=== PATIENT | female | born 1955 | race Caucasian/White ===

== ENCOUNTER 2016-12-12 08:39 | Outpatient (CLI) | payer OTHER | END 2016-12-12 08:40 | disposition home or self-care (01) | DX: Z12.31 Encounter for screening mammogram for malignant neoplasm of breast (principal) ==

== ENCOUNTER 2017-04-27 11:59 | Outpatient (CLI) | payer OTHER ==
[2017-04-27 12:43] LABS: BASOPHILS % (AUTO) 0.7 %; EOSINOPHILS # (AUTO) 0.1 10^3/uL (0.0-0.7); EOSINOPHILS % (AUTO) 2.8 %; HCT - HEMATOCRIT 39.7 % (37.0-47.0); HGB - HEMOGLOBIN 13.2 g/dL (12.0-16.0); LYMPHOCYTES # (AUTO) 0.9 10^3/uL (1.5-3.5); LYMPHOCYTES % (AUTO) 21.5 %; MEAN CORPUSCULAR HEMOGLOBIN 29.6 pg (27.0-31.0); MEAN CORPUSCULAR HGB CONC 33.4 g/dL (32.0-36.0); MEAN CORPUSCULAR VOLUME 88.7 fL (81.0-99.0); MEAN PLATELET VOLUME 7.6 fL (7.9-10.8); MONOCYTES # (AUTO) 0.4 10^3/uL (0.0-1.0); MONOCYTES % (AUTO) 9.6 %; NEUTROPHILS # (AUTO) 2.8 10^3/uL (1.5-6.6); NEUTROPHILS % (AUTO) 65.4 %; RED BLOOD COUNT 4.47 10^6/uL (4.20-5.40); RED CELL DISTRIBUTION WIDTH 13.5 % (12.0-15.0); UNCORRECTED WHITE BLOOD COUNT 4.2 x10^3/uL; WHITE BLOOD COUNT 4.2 x10^3/uL (4.8-10.8)
[2017-04-27 12:50] LABS: ALBUMIN/GLOBULIN RATIO 1.7 (1.0-2.2); BILIRUBIN,TOTAL 0.5 mg/dL (0.2-1.0); CALCIUM 9.7 mg/dL (8.5-10.3); CREATININE 0.7 mg/dL (0.4-1.0); POTASSIUM 3.8 mmol/L (3.5-5.0); TOTAL PROTEIN 7.9 g/dL (6.7-8.2)
== END 2017-04-27 12:00 | disposition home or self-care (01) ==
LOC: LAB 11:59
PROVIDERS: ATTEND Family Medicine
DX: K27.9 Peptic ulcer, site unspecified, unspecified as acute or chronic, without hemorrhage or perforation (principal)
CPT/HCPCS: 36415; 80053; 83690; 85025

== ENCOUNTER 2017-06-06 10:16 | Outpatient (CLI) | payer OTHER ==
--- NOTE | 2017-06-07 09:09 | XRAY Report ---
LEFT TOES: 06/06/2017 No comparison. INDICATION: Nondisplaced fracture of proximal phalanx. TECHNIQUE: Three views of the left toes. FINDINGS: There is orthopedic hardware that appears to be about the 1st metatarsal seen on lateral view only. There is a subtle lucency of the 2nd proximal phalanx. This is favored to be artifactual or a vascular channel. No acute bone findings are seen in other regards. Fusion of the bones of the distal 4th ray is noted. Alignment appears anatomic. IMPRESSION: NO DEFINITE ACUTE FRACTURE. SUBTLE LUCENCY OF THE BASE OF THE 2ND PROXIMAL PHALANX IS FAVORED TO REPRESENT ARTIFACT OR A VASCULAR CHANNEL, BUT CORRELATE CLINICALLY FOR POSSIBLE TENDERNESS. JOB #: [id number] EXT JOB #: [id number] MTDD
== END 2017-06-06 10:17 | disposition home or self-care (01) ==
LOC: DI 10:16
PROVIDERS: ATTEND Family Medicine
DX: S92.415S Nondisplaced fracture of proximal phalanx of left great toe, sequela (principal); Z98.1 Arthrodesis status
CPT/HCPCS: 73660

== ENCOUNTER 2017-08-27 12:25 | Emergency (ER) | payer OTHER ==
[2017-08-27 12:51] VITALS: BP 141/83
--- NOTE | 2017-08-27 13:35 | XRAY Preliminary Report ---
Exam: XR TOE(S) LT IMPRESSION: Increasing displacement without bony fusion of the avulsion fracture base third proximal phalanx. [facility] SITE ID: [id number]
--- NOTE | 2017-08-27 13:43 | XRAY Report ---
EXAM: LEFT THIRD TOE RADIOGRAPHY EXAM DATE: 08/27/2017 01:03 PM. CLINICAL HISTORY: Continued pain after fracture many months ago. COMPARISON: 06/06/2017. 04/03/2011. TECHNIQUE: 3 views. FINDINGS: Bones: Increasing degree of displacement of the 3 x 5 mm avulsion fracture medial aspect base third p roximal phalanx, now almost 4 mm separation, previously 2 mm. No bony fusion at this time. Remote fusion fourth interphalangeal joints. Remote osteotomy with 2-screw fixation first metatarsal diaphysis. Joints: Normal. No subluxations. Soft Tissues: Edema adjacent to the base third toe. IMPRESSION: Increasing displacement without bony fusion of the avulsion fracture base third proximal phalanx. [facility] Referring Provider Line: [phone] SITE ID: [id number]
--- NOTE | 2017-08-27 13:56 | ED Physician Documentation ---
History of Present Illness - Stated complaint Stated Complaint: L TOE PX - Chief complaint Chief Complaint: Trauma Ext - Additonal information Additional information: hx from pt 62 f broke her 3rd R toe last fall seen by doc in [place] dx fx given walking boot and crutches seen by PMD a few months later and no change it was getting better and then after squatting down the toe hurt really bad again pain at base of toe and radiates into the toe Review of Systems Musculoskeletal: reports: Extremity pain PD PAST MEDICAL HISTORY - Past Medical History Psych: Anxiety Musculoskeletal: Chronic back pain, Other - Past Surgical History Past Surgical History: Yes Ortho: Spine surgery, 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, 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 - Present Medications Home Medications: Ambulatory Orders Medication Instructions Recorded Confirmed Estradiol [Vivelle-Dot] 0.75 mg PO 12/23/14 12/23/14 clonazePAM [Clonazepam] 2 mg PO QPM 12/23/14 12/23/14 traZODone [Desyrel] 100 mg PO DAILY 12/23/14 12/23/14 Duloxetine HCl [Cymbalta] 60 mg QPM 02/22/16 02/22/16 Ibuprofen [Motrin] 1 tab TID PRN 02/22/16 02/22/16 Mirabegron [Myrbetriq] 1 tab QPM 02/22/16 02/22/16 Ondansetron HCl [Zofran] 1 - 2 tab PRN 02/22/16 Polyethylene Glycol 3350 1 tab QID 02/22/16 02/22/16 Solifenacin Succinate [Vesicare] 1 tab QPM 02/22/16 02/22/16 Zolmitriptan [Zomig] 2 tab PRN 02/22/16 tiZANidine [Zanaflex] 1 tab PRN 02/22/16 Valacyclovir HCl [Valtrex] 1 tab PO PRN PRN 08/27/17 08/27/17 - Allergies Allergies/Adverse Reactions: Allergies Allergy/AdvReac Type Severity Reaction Status Date / Time adhesive tape Allergy Rash Verified 08/27/17 12:57 - Social History Does the pt smoke?: No Smoking Status: Never smoker Does the pt drink ETOH?: Yes Does the pt have substance abuse?: No - Immunizations Immunizations are current?: Yes - POLST Patient has POLST: Yes PD ED PE NORMAL - Vitals Vital signs reviewed: Yes - Extremities Extremities: Other (L foot - no deformity TTP base 3rd toe and distal 3rd MT, pain rad to toe with MT head compression, TTP to MT head fat pad, MSV intact) Results - Vitals Vitals: Vital Signs - 24 hr 08/27/17 12:47 Temperature 36.3 C L Heart Rate 91 Respiratory 16 Rate Blood Pressure 141/83 H O2 Saturation 100 Oxygen O2 Source Room air PD MEDICAL DECISION MAKING - ED course ED course: unhealed and now displaced fx also some dx of nerve impingement similar to mortons neuroma will make pt non wt bearing and follow up with ortho to see if pt might merit a pin Departure - Departure Disposition: Home, Self Care Clinical Impression: Toe fracture, left Condition: Good Instructions: ED Fx Toe Closed Follow-Up: [facility] [Provider Group] Comments: The toe has not healed - there is still a fracture and now the piece is displaced. That might be irritating the nerve and causing the pains down into your toe I recommend you use your crutches and do not bear any weight at all. Call the orthopedic office for follow up - you may need to have a wire placed to hold the bone pieces together so they can heal
== END 2017-08-27 14:11 | disposition home or self-care (01) ==
LOC: ED 12:25
DX: S92.512G Displaced fracture of proximal phalanx of left lesser toe(s), subsequent encounter for fracture with delayed healing (principal); X58.XXXD Exposure to other specified factors, subsequent encounter
CPT/HCPCS: 73660; 99283

== ENCOUNTER 2018-01-01 07:50 | Outpatient (CLI) | payer OTHER ==
--- NOTE | 2018-01-02 14:07 | Mammography Report ---
DIGITAL SCREENING MAMMOGRAM: 01/01/2018 CLINICAL INDICATION: A 62-year-old for screening. COMPARISON: 12/2016, 12/2015, 11/2014, 05/2013, 05/2012, 05/2011, 12/2009. TECHNIQUE: Routine CC and MLO projections as well as bilateral laterally exaggerated craniocaudal views were obtained of the breasts. FINDINGS: Parenchymal tissue within both breasts is heterogeneously dense, which may lower the sensitivity of mammography; however, there are no dominant masses, suspicious microcalcifications, or secondary signs of malignancy. In comparison to the previous studies, there are no significant changes. IMPRESSION: NO MAMMOGRAPHIC EVIDENCE OF MALIGNANCY. NO SIGNIFICANT INTERVAL CHANGES. RECOMMENDATION: Screening mammography is recommended annually. BIRADS CATEGORY 1 - NEGATIVE. STANDARD QUALIFYING STATEMENTS: 1. This examination was reviewed with the aid of Computed-Aided Detection (CAD). 2. A negative or benign imaging report should not delay biopsy if clinically suspicious findings are present. Consider surgical consultation if warranted. More than 5% of cancers are not identified by imaging. 3. Dense breasts may obscure an underlying neoplasm. TD: 01/02/2018 14:00
== END 2018-01-01 07:51 | disposition home or self-care (01) ==
LOC: DI 07:50
PROVIDERS: ATTEND Family Medicine
DX: Z12.31 Encounter for screening mammogram for malignant neoplasm of breast (principal)
CPT/HCPCS: 77067

== ENCOUNTER 2018-05-19 08:04 | Outpatient (CLI) | payer OTHER ==
--- NOTE | 2018-05-20 09:37 | DEXA Report ---
Reason: POSTMENOPAUSAL STATUS Procedure Date: 05/19/2018 Accession Number: [id number] / [id number] Procedure: DEX - Dexa Spine and/or Hip CPT Code: FULL RESULT: EXAM: Dexa Spine and/or Hip DATE: 05/19/2018 8:49 AM CLINICAL HISTORY: POSTMENOPAUSAL STATUS TECHNIQUE: Dual energy x-ray absorptiometry (DXA) was performed on a [employer] System. Regions measured are the AP Spine, femoral neck, and if needed forearm. COMPARISON: None. In accordance with the International Society for Clinical Densitometry (ISCD) guidelines, data from previous exams may be reanalyzed using current recommendations and techniques. This is done to allow a more accurate basis for comparison with the current study. FINDINGS: The data for the lumbar spine is as follows: BMD (g/cm/cm) T-SCORE Z-SCORE REGION L1 0.789 -2.8 -1.0 L2 0.952 -2.1 -0.2 L3 1.231 0.3 2.1 L4 TOTAL 0.995 -1.5 0.4 NOTE: All evaluable vertebrae are used for classification The data for the hip is as follows: BMD (g/cm/cm) T-SCORE Z-SCORE REGION Neck 0.686 -2.5 -0.9 TOTAL 0.676 -2.6 -1.2 NOTE: The femoral neck or total proximal femur, whichever is lowest, is used for classification. IMPRESSION: THE WHO CLASSIFICATION BASED ON THE INTERNATIONAL REFERENCE STANDARD IS OSTEOPOROSIS. THE FRACTURE RISK IS HIGH. RECOMMENDATION: Patients with diagnosis of osteoporosis or osteopenia should have regular bone mineral density assessment. For those eligible for Medicare, routine testing is allowed once every 2 years. Testing frequency can be increased for patients who have rapidly progressing disease or for those who are receiving medical therapy to restore bone mass. COMMENT: World Health Organization (WHO) definitions for osteoporosis and osteopenia: NORMAL BMD: T-score at -1.0 or higher, fracture risk is low OSTEOPENIA BMD: T-score between -1.0 and -2.5, fracture risk is increased. OSTEOPOROSIS BMD: T-score at -2.5 or lower, fracture risk is high. National Osteoporosis Foundation recommends: 1. Obtain adequate dietary calcium (at least 1200 mg per day) and vitamin D (400-800 international units per day). 2. Participate, as appropriate, in regular weightbearing and muscle-strengthening exercise. 3. Avoid tobacco use and reduce alcohol and caffeine intake. 4. For more detailed information see the website at www.NOF.org.
== END 2018-05-19 08:05 | disposition home or self-care (01) ==
LOC: DI 08:04
PROVIDERS: ATTEND Family Medicine
DX: M81.0 Age-related osteoporosis without current pathological fracture (principal)
CPT/HCPCS: 77080

== ENCOUNTER 2018-06-13 10:59 | Emergency (ER) | payer OTHER ==
--- NOTE | 2018-06-13 12:44 | ED Physician Documentation ---
PD HPI ABD PAIN - Stated complaint Stated Complaint: CP/HIGH BP/N/V - Chief complaint Chief Complaint: Abd Pain - History obtained from History obtained from: Patient - History of Present Illness Timing - onset: How many weeks ago (1-2 weeks of epigastric pains, worse with eating, with poor appetite and intake/nausea. Has had headache for the past 6 days. No focal weakness.) Timing - details: Gradual onset, Waxing and waning Quality: Aching, Pain Location: Epigastric Radiation: Chest Associated symptoms: Nausea. No: Fever, Vomiting, Diarrhea, Melena Similar symptoms before: No diagnosis (presume gastritis/ulcer and being treated for that with Carafate. Referred to surgery for EGD. Appt this coming week.) Recently seen: Not recently seen Review of Systems Constitutional: denies: Fever, Chills Nose: denies: Rhinorrhea / runny nose, Congestion Throat: denies: Sore throat Cardiac: reports: Chest pain / pressure. denies: Palpitations, Pedal edema, Calf pain Respiratory: denies: Cough GI: reports: Abdominal Pain, Nausea. denies: Vomiting, Diarrhea Skin: denies: Rash, Lesions Neurologic: reports: Headache. 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 - Present Medications Home Medications: Ambulatory Orders Medication Instructions Recorded Confirmed Estradiol [Vivelle-Dot] 0.75 mg PO 12/23/14 12/23/14 clonazePAM [Clonazepam] 2 mg PO QPM 12/23/14 12/23/14 traZODone [Desyrel] 100 mg PO DAILY 12/23/14 12/23/14 Duloxetine HCl [Cymbalta] 60 mg QPM 02/22/16 02/22/16 Ibuprofen [Motrin] 1 tab TID PRN 02/22/16 02/22/16 Mirabegron [Myrbetriq] 1 tab QPM 02/22/16 02/22/16 Ondansetron HCl [Zofran] 1 - 2 tab PRN 02/22/16 Polyethylene Glycol 3350 1 tab QID 02/22/16 02/22/16 Solifenacin Succinate [Vesicare] 1 tab QPM 02/22/16 02/22/16 Zolmitriptan [Zomig] 2 tab PRN 02/22/16 tiZANidine [Zanaflex] 1 tab PRN 02/22/16 Valacyclovir HCl [Valtrex] 1 tab PO PRN PRN 08/27/17 08/27/17 Famotidine [Pepcid] 20 mg PO BID #30 tablet 06/13/18 HYDROcod/ACETAM 5/325 [[place] 5/325] 1 tab PO Q6H PRN #15 tablet 06/13/18 Lidocaine Viscous 2% [Xylocaine 5 ml PO Q4H PRN #1 bottle 06/13/18 Viscous 2%] Lisinopril 06/13/18 06/13/18 Metoprolol Succinate 25 mg PO 06/13/18 Ondansetron HCl [Zofran] 4 mg PO Q6H PRN #20 tablet 06/13/18 - Allergies Allergies/Adverse Reactions: Allergies Allergy/AdvReac Type Severity Reaction Status Date / Time adhesive tape Allergy Rash Verified 06/13/18 11:14 - Social History Does the pt smoke?: No Smoking Status: Never smoker Does the pt drink ETOH?: Yes Does the pt have substance abuse?: No - Immunizations Immunizations are current?: Yes - POLST Patient has POLST: Yes PD ED PE NORMAL - Vitals Vital signs reviewed: Yes - General General: Alert and oriented X 3, Well developed/nourished, Other (appears in pain, mainly due to stomach.) - HEENT HEENT: Pharynx benign - Neck Neck: Supple, no meningeal sign, No adenopathy - Cardiac Cardiac: RRR, No murmur - Respiratory Respiratory: No respiratory distress, Clear bilaterally - Abdomen Abdomen: Normal bowel sounds, Soft, Non distended, No organomegaly, Other - Female Female : Deferred - Rectal Rectal: Deferred - Back Back: No CVA TTP - Derm Derm: Normal color, Warm and dry - Extremities Extremities: No tenderness to palpate, Normal ROM s pain, No edema, No calf tenderness / cord - Neuro Neuro: Alert and oriented 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 No: ST elevation c/w ischemia, ST depression - Labs Labs: Laboratory Tests 06/13/18 06/13/18 06/13/18 13:25 13:25 13:25 WBC 2.8 L RBC 4.37 Hgb 13.0 Hct 38.0 MCV 87.0 MCH 29.8 MCHC 34.3 RDW 13.3 Plt Count 155 MPV 8.6 Neut # (Auto) 2.2 Lymph # (Auto) 0.2 L King # (Auto) 0.3 Eos # (Auto) 0.0 Baso # (Auto) 0.0 Absolute Nucleated RBC 0.00 Nucleated RBC % 0.1 Manual Slide Review Indicated RBC Morph Micro Appear 2+ ANISOCYTOSIS ESR Sodium 135 Potassium 3.0 L Chloride 96 L Carbon Dioxide 30 Anion Gap 9.0 BUN 20 Creatinine 0.3 L Estimated GFR (MDRD) 226 Glucose 111 H Calcium 8.9 Magnesium 2.1 Total Bilirubin 0.6 AST 30 ALT 34 Alkaline Phosphatase 73 Troponin I < 0.04 Total Protein 6.3 L Albumin 3.5 Globulin 2.8 Albumin/Globulin Ratio 1.3 Lipase 23 06/13/18 13:25 WBC RBC Hgb Hct MCV MCH MCHC RDW Plt Count MPV Neut # (Auto) Lymph # (Auto) King # (Auto) Eos # (Auto) Baso # (Auto) Absolute Nucleated RBC Nucleated RBC % Manual Slide Review RBC Morph Micro Appear ESR 15 Sodium Potassium Chloride Carbon Dioxide Anion Gap BUN Creatinine Estimated GFR (MDRD) Glucose Calcium Magnesium Total Bilirubin AST ALT Alkaline Phosphatase Troponin I Total Protein Albumin Globulin Albumin/Globulin Ratio Lipase PD MEDICAL DECISION MAKING - ED course Complexity details: reviewed results (head CT is normal (low prob test but patient/ concerned about the degree of headache). Headache seems likely migrainous. Stomach seems ulcerative. Given Rx for stool test for H.pylori. ), considered differential, d/w patient Departure - Departure Disposition: 01 Home, Self Care Clinical Impression: Generalized headache, Upper abdominal pain Condition: Stable Record reviewed to determine appropriate education?: Yes Instructions: ED Cephalgia Unspecified, ED PUD Vs Gastritis Follow-Up: Nedra Almeida DO [Primary Care Provider] - Prescriptions: Famotidine [Pepcid] 20 mg PO BID #30 tablet HYDROcod/ACETAM 5/325 [[place] 5/325] 1 tab PO Q6H PRN #15 tablet PRN Reason: Pain Lidocaine Viscous 2% [Xylocaine Viscous 2%] 5 ml PO Q4H PRN #1 bottle PRN Reason: Pain Ondansetron HCl [Zofran] 4 mg PO Q6H PRN #20 tablet PRN Reason: Nausea / Vomiting Comments: Drink lots of fluids. Continue the Carafate as previously prescribed. Add famotidine twice daily for the next couple of weeks. Lidocaine with antacid if needed for stomach pain. Ondansetron if needed for nausea. Add Tylenol or hydrocodone if needed for pain. No NSAID use. Use a mild stool softener daily. Bring a stool sample in for testing for H. pylori bacteria. This can just be brought to the lab or the your doctor's office. Follow-up with your primary care next week, call for an appointment. Discharge Date/Time: 06/13/18 16:20
[2018-06-13] MEDS ORDERED: SODIUM CHLORIDE 0.9% 1,000 ML IV ONE ×2 (13:08→13:11)
[2018-06-13] MEDS ORDERED: KETOROLAC 15 MG/ML VIAL IVP STA (13:09)
[2018-06-13] MEDS ORDERED: FAMOTIDINE 20 MG/2 ML VIAL IVP STA (13:09)
[2018-06-13] MEDS ORDERED: ONDANSETRON 4 MG/2 ML VIAL IVP STA (13:09)
[2018-06-13] MEDS ORDERED: LIDOCAINE VISCOUS 2% 15 ML UDC MM STA (13:10)
[2018-06-13] MEDS ORDERED: MAG HYDROX/AL HYDROX/SIMETH 30 ML UDC PO STA (13:10)
[2018-06-13 13:48] LABS: ALBUMIN 3.5 g/dL (3.2-5.5); ALBUMIN/GLOBULIN RATIO 1.3 (1.0-2.2); BILIRUBIN,TOTAL 0.6 mg/dL (0.2-1.0); CALCIUM 8.9 mg/dL (8.5-10.3); CREATININE 0.3 mg/dL (0.4-1.0); MAGNESIUM 2.1 mg/dL (1.7-2.8); TOTAL PROTEIN 6.3 g/dL (6.7-8.2)
[2018-06-13] MEDS ORDERED: POTASSIUM CHLOR 10 MEQ/100 ML 10 MEQ/100 ML BAG IV ONE (13:56)
[2018-06-13] MEDS ORDERED: POTASSIUM BICARB 25 MEQ TABLET PO STA (13:56)
[2018-06-13 14:07] LABS: BASOPHILS % (AUTO) 0.4 %; EOSINOPHILS % (AUTO) 0.7 %; LYMPHOCYTES # (AUTO) 0.2 10^3/uL (1.5-3.5); LYMPHOCYTES % (AUTO) 8.5 %; MEAN CORPUSCULAR HEMOGLOBIN 29.8 pg (27.0-31.0); MEAN CORPUSCULAR HGB CONC 34.3 g/dL (32.0-36.0); MEAN PLATELET VOLUME 8.6 fL (7.9-10.8); MONOCYTES # (AUTO) 0.3 10^3/uL (0.0-1.0); MONOCYTES % (AUTO) 11.3 %; NEUTROPHILS # (AUTO) 2.2 10^3/uL (1.5-6.6); NEUTROPHILS % (AUTO) 79.1 %; PLT - PLATELET COUNT 155 10^3/uL (130-450); RED BLOOD COUNT 4.37 10^6/uL (4.20-5.40); RED CELL DISTRIBUTION WIDTH 13.3 % (12.0-15.0); WHITE BLOOD COUNT 2.8 x10^3/uL (4.8-10.8)
[2018-06-13] MEDS ORDERED: MORPHINE 2 MG/ML CARPUJECT IVP STA (14:15)
[2018-06-13 14:21] LABS: RBC MORPHOLOGY (MULTIPLE) 2+ ANISOCYTOSIS (NORMAL)
--- NOTE | 2018-06-13 15:28 | CT Report ---
Reason: headache for over a week Procedure Date: 06/13/2018 Accession Number: [id number] / [id number] Procedure: CT - Head W/O CPT Code: FULL RESULT: EXAM: CT HEAD EXAM DATE: 06/13/2018 03:06 PM. CLINICAL HISTORY: Headache for over a week. COMPARISON: BRAIN W/O 09/23/2015 7:51 AM. TECHNIQUE: Multiaxial CT images were obtained from the foramen magnum to the vertex. Reformats: Sagittal and coronal. IV contrast: None. In accordance with CT protocol optimization, one or more of the following dose reduction techniques were utilized for this exam: automated exposure control, adjustment of mA and/or KV based on patient size, or use of iterative reconstructive technique. FINDINGS: Parenchyma: No intraparenchymal hemorrhage. No evidence of mass, midline shift, or CT findings of infarction. Bolton-white differentiation is distinct. Extraaxial Spaces: Normal for age. No subdural or epidural collections identified. Ventricles: Normal in size and position. Sinuses and Orbits: Imaged paranasal sinuses, orbits, and mastoids show no significant abnormality. Bones: No evidence of fracture or calvarial defect. Other: None. IMPRESSION: No acute intracranial CT abnormality. [facility]
[2018-06-13] MEDS ORDERED: MORPHINE 10 MG/ML VIAL IVP STA (15:51)
[2018-06-13 16:20] VITALS: BP 153/87
== END 2018-06-13 16:20 | disposition home or self-care (01) ==
LOC: ED 10:59
DX: R51 Headache (principal); R10.13 Epigastric pain
CPT/HCPCS: 36415; 70450; 80053; 83690; 83735; 84484; 85025; 85651; 93005; 96361; 96365; 96375; 96376; 99283; 99284; A9270

== ENCOUNTER → 2018-06-14 | Outpatient (CLI) | payer OTHER ==
[2018-06-14 13:43] LABS: H. PYLORIS ANTIGEN STL NEGATIVE (Negative)
== END ==
LOC: LAB.R 08:00
PROVIDERS: ATTEND Emergency Medicine
DX: R10.9 Unspecified abdominal pain (principal)
CPT/HCPCS: 87338

== ENCOUNTER 2018-07-02 06:15 | Day surgery (SDC) | payer OTHER ==
[2018-07-02] MEDS ORDERED: LACTATED RINGERS 1,000 ML IV ONE (06:31)
[2018-07-02] MEDS ORDERED: LIDO GARGLE 30 ML BOTTLE ONE (07:13)
[2018-07-02] MEDS ORDERED: LIDO GARGLE 30 ML BOTTLE TOP ONE (07:40)
[2018-07-02] MEDS ORDERED: fentaNYL 250 MCG/5 ML VIAL IVP ONE (08:00)
[2018-07-02] MEDS ORDERED: MIDAZOLAM 2 MG/2 ML VIAL IVP ONE (08:00)
[2018-07-02] MEDS ORDERED: KETAMINE 500 MG/10 ML VIAL IVP ONE (08:20)
[2018-07-02] MEDS ORDERED: PROPOFOL 200 MG/20 ML VIAL IVP ONE (08:20)
[2018-07-02] MEDS ORDERED: LIDOCAINE-MPF 2% 5 ML VIAL IM ONE (08:20)
[2018-07-02 10:07] VITALS: BP 124/74
== END 2018-07-02 06:16 | disposition home or self-care (01) ==
LOC: SDS 06:15
PROVIDERS: ATTEND Internal Medicine Gastroenterology
PROC: 0DB68ZX Excision of Stomach, Via Natural or Artificial Opening Endoscopic, Diagnostic (ICD-10-PCS; 2018-07-02)
PROC: 0DJD8ZZ Inspection of Lower Intestinal Tract, Via Natural or Artificial Opening Endoscopic (ICD-10-PCS; principal; 2018-07-02 07:30)
PROC: 0DB58ZX Excision of Esophagus, Via Natural or Artificial Opening Endoscopic, Diagnostic (ICD-10-PCS; 2018-07-02 07:30)
DX: R10.13 Epigastric pain (principal); R13.10 Dysphagia, unspecified; K21.9 Gastro-esophageal reflux disease without esophagitis; Z86.010 Personal history of colon polyps; K29.70 Gastritis, unspecified, without bleeding; K59.09 Other constipation; Q43.8 Other specified congenital malformations of intestine; I10 Essential (primary) hypertension
CPT/HCPCS: 43239; 45378; 74280; 87081; A9270; J3010; J7120

== ENCOUNTER 2018-07-02 11:21 | Outpatient (CLI) | payer OTHER ==
[2018-07-02] MEDS ORDERED: BARIUM SULFATE 397 GM ENEMA PR ONE (14:06)
--- NOTE | 2018-07-02 16:01 | XRAY Report ---
Reason: HX COLON POLPS Procedure Date: 07/02/2018 Accession Number: [id number] / [id number] Procedure: FL - Barium Enema w/Air CPT Code: FULL RESULT: EXAM: BARIUM ENEMA. EXAM DATE: 07/02/2018 11:46 AM. CLINICAL HISTORY: History of colon polyps. COMPARISONS: None. TECHNIQUE: Routine double contrast barium enema. Fluoroscopy Time: 5 minutes 11 seconds. Number of Images: 40. FINDINGS: Morphology: Normal distention and anatomy. Colon adequately visualized from the rectum to the cecum. Mucosa: Normal. No diverticula, masses, or strictures. No filling defects evident. Terminal Ileum: Mild ileocecal reflux present. No mucosal abnormalities evident. Other: None. IMPRESSION: Normal barium enema. [facility]
== END 2018-07-02 11:22 | disposition home or self-care (01) ==
LOC: DI 11:21
PROVIDERS: ATTEND Internal Medicine Gastroenterology
DX: Z86.010 Personal history of colon polyps (principal)
CPT/HCPCS: 74280

== ENCOUNTER 2018-08-20 10:27 | Outpatient (CLI) | payer OTHER ==
[2018-08-20] MEDS ORDERED: BARIUM SULFATE 148 GM POWDER PO ONE (10:58)
[2018-08-20] MEDS ORDERED: BARIUM SULFATE 454 GM TUBE PO ONE (10:58)
--- NOTE | 2018-08-22 12:05 | XRAY Report ---
Reason: DYSPHAGIA, UNSPECIFIED Procedure Date: 08/20/2018 Accession Number: [id number] / [id number] Procedure: FL - Modified Barium Swallow W/SP CPT Code: FULL RESULT: EXAM: MODIFIED BARIUM SWALLOW EXAM DATE: 08/20/2018 10:54 AM. CLINICAL HISTORY: Dysphagia, unspecified. COMPARISON: 07/02/2018 11:46 AM. TECHNIQUE: Under the direction of speech pathology, patient swallowed various consistencies of barium under lateral fluoroscopic observation of the neck. Fluoroscopy Time: 1 minute 20 seconds. Number of Images: 74. FINDINGS: Swallowing Mechanism: Significantly delayed initiation. Airway Protection: Normal epiglottic motion. No episodes of tracheal penetration or aspiration with all consistencies of barium. Pharynx: Normal. No significant vallecular or piriform sinus contrast pooling. Other: None. IMPRESSION: Delayed initiation. No aspiration. [facility]
== END 2018-08-20 10:28 | disposition home or self-care (01) ==
LOC: DI 10:27
PROVIDERS: ATTEND Internal Medicine Gastroenterology
DX: R13.10 Dysphagia, unspecified (principal)
CPT/HCPCS: 74230

== ENCOUNTER 2018-08-25 11:55 | Emergency (ER) | payer OTHER ==
[2018-08-25 12:20] LABS: BASOPHILS # (AUTO) 0.1 10^3/uL (0.0-0.1); BASOPHILS % (AUTO) 1.2 %; EOSINOPHILS # (AUTO) 0.1 10^3/uL (0.0-0.7); HGB - HEMOGLOBIN 12.9 g/dL (12.0-16.0); LYMPHOCYTES # (AUTO) 0.8 10^3/uL (1.5-3.5); LYMPHOCYTES % (AUTO) 17.2 %; MEAN CORPUSCULAR HEMOGLOBIN 29.6 pg (27.0-31.0); MEAN CORPUSCULAR HGB CONC 33.9 g/dL (32.0-36.0); MEAN CORPUSCULAR VOLUME 87.5 fL (81.0-99.0); MEAN PLATELET VOLUME 8.3 fL (7.9-10.8); MONOCYTES # (AUTO) 0.4 10^3/uL (0.0-1.0); MONOCYTES % (AUTO) 7.9 %; NEUTROPHILS # (AUTO) 3.4 10^3/uL (1.5-6.6); NEUTROPHILS % (AUTO) 71.7 %; PLT - PLATELET COUNT 217 10^3/uL (130-450); RED BLOOD COUNT 4.37 10^6/uL (4.20-5.40); RED CELL DISTRIBUTION WIDTH 14.5 % (12.0-15.0); WHITE BLOOD COUNT 4.7 x10^3/uL (4.8-10.8)
[2018-08-25 12:41] LABS: ALBUMIN/GLOBULIN RATIO 1.8 (1.0-2.2); BILIRUBIN,TOTAL 0.5 mg/dL (0.2-1.0); CALCIUM 9.7 mg/dL (8.5-10.3); CREATININE 0.8 mg/dL (0.4-1.0); TOTAL PROTEIN 7.8 g/dL (6.7-8.2)
[2018-08-25 14:25] LABS: BILIRUBIN,URINE NEGATIVE (NEGATIVE); GLUCOSE, URINE (UA) NEGATIVE (NEGATIVE); KETONES,URINE (UA) NEGATIVE (NEGATIVE); LEUKOCYTE ESTERASE, URINE NEGATIVE (NEGATIVE); NITRITE,URINE NEGATIVE (NEGATIVE); OCCULT BLOOD,URINE NEGATIVE (NEGATIVE); PH,URINE 7.5 PH (5.0-7.5); PROTEIN,URINE NEGATIVE (NEGATIVE); UROBILINOGEN,URINE 0.2 (NORMAL) E.U./dL (NORMAL)
[2018-08-25 14:26] LABS: CLARITY,URINE CLEAR (CLEAR)
[2018-08-25] MEDS ORDERED: cloNIDine 0.1 MG TABLET PO STA (14:34)
--- NOTE | 2018-08-25 14:42 | ED Physician Documentation ---
History of Present Illness - Stated complaint Stated Complaint: HIGH BP/VISION CHANGE - Chief complaint Chief Complaint: Neuro - History obtained from History obtained from: Patient - History of Present Illness Timing: How many weeks ago (4) Pain level max: 3 Pain level now: 2 Severity Comments: mild Quality: pressure Radiates to: non-radiating Improved by: nothing Worsened by: nothing Review of Systems Ten Systems: 10 systems reviewed and negative Constitutional: reports: Reviewed and negative Eyes: reports: Reviewed and negative Ears: reports: Reviewed and negative Nose: reports: Reviewed and negative Throat: reports: Reviewed and negative Cardiac: reports: Reviewed and negative Respiratory: reports: Reviewed and negative GI: reports: Reviewed and negative : reports: Reviewed and negative Skin: reports: Reviewed and negative Musculoskeletal: reports: Reviewed and negative Neurologic: reports: Reviewed and negative Psychiatric: reports: Reviewed and negative Endocrine: reports: Reviewed and negative Immunocompromised: reports: Reviewed and negative PD PAST MEDICAL HISTORY - Past Medical History Past Medical History: Yes Cardiovascular: Hypertension Respiratory: None Neuro: Headaches Endocrine/Autoimmune: None GI: GERD, Ulcers, Colon polyps : None HEENT: None Psych: Anxiety Musculoskeletal: Chronic back pain, Other Derm: None - Past Surgical History Past Surgical History: Yes Ortho: Spine surgery, 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, 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 - Present Medications Home Medications: Ambulatory Orders Medication Instructions Recorded Confirmed Estradiol [Vivelle-Dot] 0.75 mg PO DAILY 12/23/14 07/02/18 clonazePAM [Clonazepam] 2 mg PO QPM 12/23/14 07/02/18 traZODone [Desyrel] 100 mg PO DAILY 12/23/14 07/02/18 Duloxetine HCl [Cymbalta] 60 mg PO QPM 02/22/16 07/02/18 Mirabegron [Myrbetriq] 1 tab PO QPM 02/22/16 07/02/18 Polyethylene Glycol 3350 1 tab QID 02/22/16 07/02/18 Solifenacin Succinate [Vesicare] 1 tab QPM 02/22/16 07/02/18 Zolmitriptan [Zomig] 2 tab PO PRN PRN 02/22/16 07/02/18 tiZANidine [Zanaflex] 1 tab PO DAILY 02/22/16 07/02/18 Valacyclovir HCl [Valtrex] 1 tab PO PRN PRN 01/16/18 11/21/18 HYDROcod/ACETAM 5/325 [[place] 5/325] 1 tab PO Q6H PRN #15 tablet 06/13/18 07/02/18 Lidocaine Viscous 2% [Xylocaine 5 ml PO Q4H PRN #1 bottle 06/13/18 07/02/18 Viscous 2%] Lisinopril 20 mg PO DAILY 06/13/18 07/02/18 Metoprolol Succinate 25 mg PO DAILY 06/13/18 07/02/18 Ondansetron HCl [Zofran] 4 mg PO Q6H PRN #20 tablet 06/13/18 07/02/18 - Allergies Allergies/Adverse Reactions: Allergies Allergy/AdvReac Type Severity Reaction Status Date / Time adhesive tape Allergy Rash Verified 08/25/18 12:03 - Living Situation Living Situation: reports: With family Living Arrangement: reports: At home - Social History Does the pt smoke?: No Smoking Status: Never smoker Does the pt drink ETOH?: Yes Does the pt have substance abuse?: No - Family History Family history: reports: Other (REviewed and not pertinent) - Immunizations Immunizations are current?: Yes - POLST Patient has POLST: Yes PD ED PE NORMAL - Vitals Vital signs reviewed: Yes - General General: Alert and oriented X 3, No acute distress - HEENT HEENT: PERRL - Neck Neck: Supple, no meningeal sign - Cardiac Cardiac: RRR, No murmur - Respiratory Respiratory: Clear bilaterally - Abdomen Abdomen: Normal bowel sounds, Soft, Non tender, Non distended - Derm Derm: Warm and dry - Extremities Extremities: No deformity - Neuro Neuro: Alert and oriented X 3 - Psych Psych: Normal mood, Normal affect Results - Vitals Vitals: Vital Signs - 24 hr 08/25/18 08/25/18 08/25/18 11:57 14:16 15:21 Temperature 36.2 C L Heart Rate 71 65 61 Respiratory 18 16 16 Rate Blood Pressure 191/92 H 189/99 H 182/99 H O2 Saturation 100 100 100 08/25/18 15:57 Temperature Heart Rate Respiratory Rate Blood Pressure 186/96 H O2 Saturation Oxygen O2 Source Room air - Labs Labs: Laboratory Tests 08/25/18 08/25/18 08/25/18 12:10 12:10 14:11 WBC 4.7 L RBC 4.37 Hgb 12.9 Hct 38.2 MCV 87.5 MCH 29.6 MCHC 33.9 RDW 14.5 Plt Count 217 MPV 8.3 Neut # (Auto) 3.4 Lymph # (Auto) 0.8 L [place] # (Auto) 0.4 Eos # (Auto) 0.1 Baso # (Auto) 0.1 Absolute Nucleated RBC 0.00 Nucleated RBC % 0.0 Sodium 138 Potassium 3.6 Chloride 97 L Carbon Dioxide 32 Anion Gap 9.0 BUN 18 Creatinine 0.8 Estimated GFR (MDRD) 73 L Glucose 107 H Calcium 9.7 Total Bilirubin 0.5 AST 37 ALT 35 Alkaline Phosphatase 67 Troponin I Total Protein 7.8 Albumin 5.0 Globulin 2.8 Albumin/Globulin Ratio 1.8 Lipase 34 Urine Color YELLOW Urine Clarity CLEAR Urine pH 7.5 Ur Specific Springer 1.015 Urine Protein NEGATIVE Urine Glucose (UA) NEGATIVE Urine Ketones NEGATIVE Urine Occult Blood NEGATIVE Urine Nitrite NEGATIVE Urine Bilirubin NEGATIVE Urine Urobilinogen 0.2 (NORMAL) Ur Leukocyte Esterase NEGATIVE Ur Microscopic Review NOT INDICATED Urine Culture Comments NOT INDICATED 08/25/18 15:29 WBC RBC Hgb Hct MCV MCH MCHC RDW Plt Count MPV Neut # (Auto) Lymph # (Auto) Z[place]ata # (Auto) Eos # (Auto) Baso # (Auto) Absolute Nucleated RBC Nucleated RBC % Sodium Potassium Chloride Carbon Dioxide Anion Gap BUN Creatinine Estimated GFR (MDRD) Glucose Calcium Total Bilirubin AST ALT Alkaline Phosphatase Troponin I < 0.04 Total Protein Albumin Globulin Albumin/Globulin Ratio Lipase Urine Color Urine Clarity Urine pH Ur Specific Springer Urine Protein Urine Glucose (UA) Urine Ketones Urine Occult Blood Urine Nitrite Urine Bilirubin Urine Urobilinogen Ur Leukocyte Esterase Ur Microscopic Review Urine Culture Comments Departure - Departure Disposition: Home, Self Care Clinical Impression: Elevated blood pressure reading Condition: Stable Instructions: Hypertension Control, High Blood Pressure Follow-Up: Nedra Almeida MD [Primary Care Provider] - Comments: Follow up with PCP within 24 hours to adjust blood pressure medications. Return with worsening symptoms.
--- NOTE | 2018-08-25 15:28 | CT Report ---
Reason: HTN w headache Procedure Date: 08/25/2018 Accession Number: [id number] / [id number] Procedure: CT - Head W/O CPT Code: FULL RESULT: EXAM: CT HEAD EXAM DATE: 08/25/2018 02:46 PM. CLINICAL HISTORY: HTN w headache. COMPARISON: HEAD W/O 06/13/2018 3:08 PM. TECHNIQUE: Multiaxial CT images were obtained from the foramen magnum to the vertex. Reformats: Sagittal and coronal. IV contrast: None. In accordance with CT protocol optimization, one or more of the following dose reduction techniques were utilized for this exam: automated exposure control, adjustment of mA and/or KV based on patient size, or use of iterative reconstructive technique. FINDINGS: Parenchyma: No intraparenchymal hemorrhage. No evidence of mass, midline shift, or CT findings of infarction. Bolton-white differentiation is distinct. Mild patchy white matter hypodensity in the periventricular white matter and centrum semiovale suggesting chronic microvascular ischemic change. Extraaxial Spaces: Normal for age. No subdural or epidural collections identified. Ventricles: Normal in size and position. Sinuses and Orbits: Imaged paranasal sinuses, orbits, and mastoids show no significant abnormality. Bones: No evidence of fracture or calvarial defect. Other: None. IMPRESSION: 1. No definite acute intracranial abnormality. RADIA
[2018-08-25 15:58] VITALS: BP 186/96
== END 2018-08-25 16:15 | disposition home or self-care (01) ==
LOC: ED 11:55
DX: I10 Essential (primary) hypertension (principal)
CPT/HCPCS: 36415; 70450; 80053; 81003; 83690; 84484; 85025; 93005; 99283; 99284; A9270; 81001; 87086

== ENCOUNTER 2018-09-02 11:36 | Emergency (ER) | payer OTHER ==
[2018-09-02 12:14] LABS: BASOPHILS % (AUTO) 0.3 %; EOSINOPHILS # (AUTO) 0.1 10^3/uL (0.0-0.7); EOSINOPHILS % (AUTO) 3.6 %; HGB - HEMOGLOBIN 12.6 g/dL (12.0-16.0); LYMPHOCYTES # (AUTO) 0.8 10^3/uL (1.5-3.5); LYMPHOCYTES % (AUTO) 21.3 %; MEAN CORPUSCULAR HEMOGLOBIN 29.7 pg (27.0-31.0); MEAN CORPUSCULAR HGB CONC 33.9 g/dL (32.0-36.0); MEAN CORPUSCULAR VOLUME 87.5 fL (81.0-99.0); MEAN PLATELET VOLUME 8.3 fL (7.9-10.8); MONOCYTES # (AUTO) 0.3 10^3/uL (0.0-1.0); MONOCYTES % (AUTO) 8.5 %; NEUTROPHILS # (AUTO) 2.7 10^3/uL (1.5-6.6); NEUTROPHILS % (AUTO) 66.3 %; PLT - PLATELET COUNT 206 10^3/uL (130-450); RED BLOOD COUNT 4.25 10^6/uL (4.20-5.40); RED CELL DISTRIBUTION WIDTH 14.6 % (12.0-15.0)
[2018-09-02 12:27] LABS: ALBUMIN 4.6 g/dL (3.2-5.5); ALBUMIN/GLOBULIN RATIO 1.4 (1.0-2.2); BILIRUBIN,TOTAL 0.7 mg/dL (0.2-1.0); CALCIUM 9.2 mg/dL (8.5-10.3); CREATININE 0.8 mg/dL (0.4-1.0); TOTAL PROTEIN 7.8 g/dL (6.7-8.2)
--- NOTE | 2018-09-02 13:55 | ED Physician Documentation ---
History of Present Illness - Stated complaint Stated Complaint: HPB/[place]/SOA - Chief complaint Chief Complaint: General - History obtained from History obtained from: Patient - History of Present Illness Timing: Today (Went to dentist's office today to have work done but BP was 191/106 and sent to ED. Had some SOA and jitteriness after being told that but self resolved. BP usually 180/100 at home, just had metoprolol doubled. 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 - Present Medications Home Medications: Ambulatory Orders Medication Instructions Recorded Confirmed Estradiol [Vivelle-Dot] 0.75 mg PO DAILY 12/23/14 07/02/18 RX: clonazePAM [Clonazepam] 2 mg PO QPM 12/23/14 07/02/18 traZODone [Desyrel] 100 mg PO DAILY 12/23/14 07/02/18 Duloxetine HCl [Cymbalta] 60 mg PO QPM 02/22/16 07/02/18 Mirabegron [Myrbetriq] 1 tab PO QPM 02/22/16 07/02/18 RX: Polyethylene Glycol 3350 1 tab QID 02/22/16 07/02/18 RX: tiZANidine [Zanaflex] 1 tab PO DAILY 02/22/16 07/02/18 Solifenacin Succinate [Vesicare] 1 tab QPM 02/22/16 07/02/18 Zolmitriptan [Zomig] 2 tab PO PRN PRN 02/22/16 07/02/18 Valacyclovir HCl [Valtrex] 1 tab PO PRN PRN 08/27/17 07/02/18 HYDROcod/ACETAM 5/325 [[place] 5/325] 1 tab PO Q6H PRN #15 tablet 06/13/18 07/02/18 Ondansetron HCl [Zofran] 4 mg PO Q6H PRN #20 tablet 06/13/18 07/02/18 RX: Lidocaine Viscous 2% 5 ml PO Q4H PRN #1 bottle 06/13/18 07/02/18 [Xylocaine Viscous 2%] RX: Lisinopril 20 mg PO DAILY 06/13/18 07/02/18 RX: Metoprolol Succinate 25 mg PO DAILY 06/13/18 07/02/18 RX: Lisinopril 20 mg PO BID #60 tablet 09/02/18 RX: Metoprolol Tartrate 50 mg PO BID #60 tablet 09/02/18 - Allergies Allergies/Adverse Reactions: Allergies Allergy/AdvReac Type Severity Reaction Status Date / Time adhesive tape Allergy Rash Verified 09/02/18 11:48 - Social History Does the pt smoke?: No Smoking Status: Never smoker Does the pt drink ETOH?: Yes Does the pt have substance abuse?: No - Immunizations Immunizations are current?: Yes - POLST Patient has POLST: Yes PD ED PE NORMAL - Vitals Vital signs reviewed: Yes - General General: Alert and oriented X 3, No acute distress - HEENT HEENT: PERRL, EOMI - Cardiac Cardiac: RRR, No murmur - Respiratory Respiratory: No respiratory distress, Clear bilaterally - Abdomen Abdomen: Non tender - Extremities Extremities: No edema, No calf tenderness / cord - Neuro Neuro: Alert and oriented X 3, Normal speech Results - Vitals Vitals: Vital Signs - 24 hr 09/02/18 09/02/18 09/02/18 11:39 12:20 12:33 Temperature 36 C L Heart Rate 65 60 Respiratory 16 15 Rate Blood Pressure 198/96 H 202/103 H 196/94 H O2 Saturation 96 100 09/02/18 09/02/18 13:00 14:06 Temperature 36.5 C Heart Rate 56 L 58 L Respiratory 20 Rate Blood Pressure 186/97 H 199/104 H O2 Saturation 100 100 Oxygen O2 Source Room air - EKG (time done) 1145 Rate: Rate (enter#) (58) Rhythm: NSR Parsons: Normal Intervals: Normal AR QRS: Normal Ischemia: Normal ST segments Computer interpretation: Agree with computer - Labs Labs: Laboratory Tests 09/02/18 09/02/18 09/02/18 12:07 12:07 12:07 WBC 4.0 L RBC 4.25 Hgb 12.6 Hct 37.2 MCV 87.5 MCH 29.7 MCHC 33.9 RDW 14.6 Plt Count 206 MPV 8.3 Neut # (Auto) 2.7 Lymph # (Auto) 0.8 L [place] # (Auto) 0.3 Eos # (Auto) 0.1 Baso # (Auto) 0.0 Absolute Nucleated RBC 0.00 Nucleated RBC % 0.0 Sodium 138 Potassium 3.4 L Chloride 96 L Carbon Dioxide 33 H Anion Gap 9.0 BUN 17 Creatinine 0.8 Estimated GFR (MDRD) 73 L Glucose 110 H Calcium 9.2 Total Bilirubin 0.7 AST 37 ALT 38 Alkaline Phosphatase 65 Troponin I < 0.04 Total Protein 7.8 Albumin 4.6 Globulin 3.2 Albumin/Globulin Ratio 1.4 Lipase 32 PD MEDICAL DECISION MAKING - ED course ED course: This is a 63-year-old woman with asymptomatic hypertension. She recently had her metoprolol increased without much change in her blood pressure. We will double her lisinopril pending primary care follow-up. Departure - Departure Disposition: 01 Home, Self Care Clinical Impression: Hypertension Condition: Good Record reviewed to determine appropriate education?: Yes Instructions: ED HTN Established Prescriptions: RX: Lisinopril 20 mg PO BID #60 tablet RX: Metoprolol Tartrate 50 mg PO BID #60 tablet Comments: Followup with your primary care doctor for blood pressure recheck and continued medication adjustments. Discharge Date/Time: 09/02/18 14:11
[2018-09-02 14:07] VITALS: BP 199/104
== END 2018-09-02 14:11 | disposition home or self-care (01) ==
LOC: ED 11:36
DX: I10 Essential (primary) hypertension (principal)
CPT/HCPCS: 36415; 71045; 80053; 83690; 84484; 85025; 93005; 99283

== ENCOUNTER 2018-10-03 07:41 | Outpatient (CLI) | payer OTHER ==
--- NOTE | 2018-10-03 12:47 | Ultrasound Report ---
Reason: HYPERTENSION,BENIGN ESSENTIAL Procedure Date: 10/03/2018 Accession Number: [id number] / [id number] Procedure: US - Arterial Visceral Complete CPT Code: FULL RESULT: EXAM: RENAL ARTERY DOPPLER ULTRASOUND EXAM DATE: 10/03/2018 09:02 AM. CLINICAL HISTORY: HYPERTENSION, BENIGN ESSENTIAL. COMPARISON: None. TECHNIQUE: Real-time sonographic vascular imaging was performed by the cleaner and trimmer through the renal arterial system with a linear transducer utilizing color-flow, Doppler flow, and spectral analysis. Multiple inside outside sales representative static images were saved for review. FINDINGS: Peak systolic velocities as well as resistive indices and spectral waveforms are within normal limits. Please note that the recorded peak systolic velocity in the mid right renal artery of 201 cm/sec is likely due to artifact with the true velocity closer to 175 cm/sec, aliasing artifact. This is consistent with known pathophysiology; atherosclerotic renal artery stenosis occurs at the aortic ostium. Fibromuscular dysplasia which can occur in the mid renal artery typically affects a younger age group. The right renal vein is patent. Right Kidney: 9.4 x 4.9 x 5.2 cm. Echotexture: Within normal limits. Right Segmental Artery: Upper pole: PSV 98 cm/sec, RI 0.71. Mid pole: PSV 84 cm/sec, RI 0.78. Lower pole: PSV 54 cm/sec, RI 0.69. Right Renal Artery: Origin: PSV 139 cm/sec, RA/AO 1.9. Proximal: PSV 113 cm/sec, RA/AO 1.5. Mid: PSV 201 cm/sec, RA/AO 2.8. Distal: PSV 113 cm/sec, RA/AO 1.5. Aorta PSV: 72 cm/sec. RRV Patent: Yes. Left Kidney: 9.2 x 5.0 x 5.1 cm. Echotexture: Within normal limits. Left Segmental Artery: Upper pole: PSV 54 cm/sec, RI 0.69. Mid pole: PSV 65 cm/sec, RI 0.66. Lower pole: PSV 47 cm/sec, RI 0.64. Left Renal Artery: Origin: PSV 105 cm/sec, RA/AO 1.4. Proximal: PSV 112 cm/sec, RA/AO 1.5. Mid: PSV 174 cm/sec, RA/AO 2.4. Distal: PSV 47 cm/sec, RA/AO 0.65. LRV Patent: Yes. IMPRESSION: The study is negative for atherosclerotic renal artery stenosis. If there is concern for neuromuscular dysplasia, which is felt to be less likely in this patient, CTA could be considered. CRITERIA FOR CLASSIFICATION OF RENAL ARTERY (RA) DISEASE BY DUPLEX SCANNING: RA Diameter Reduction/ RA PSV/ RAR: Normal, < 180 cm/sec, < 3.5 < 60%, >= 180 cm/sec, < 3.5 >= 60%, >= 180 cm/sec, >= 3.5 Total Occlusion: Undetectable; Not applicable RADIA
== END 2018-10-03 07:42 | disposition home or self-care (01) ==
LOC: DI 07:41
PROVIDERS: ATTEND Family Medicine
DX: I10 Essential (primary) hypertension (principal)
CPT/HCPCS: 93975

== ENCOUNTER 2018-10-15 11:12 | Outpatient (CLI) | payer OTHER ==
--- NOTE | 2018-10-15 12:57 | Ultrasound Report ---
Reason: FINGER PAIN,LEFT Procedure Date: 10/15/2018 Accession Number: [id number] / [id number] Procedure: US - Ext Limited Non Vascular CPT Code: FULL RESULT: EXAM: LEFT UPPER EXTREMITY ULTRASOUND - LIMITED EXAM DATE: 10/15/2018 11:49 AM. CLINICAL HISTORY: Finger pain, left. COMPARISON: None. TECHNIQUE: Real-time scanning was performed with static images obtained. FINDINGS: Focused ultrasound of the left index finger along the volar side at the level of the distal interphalangeal joint is performed, as this is the area indicated by the patient as painful. At the tendinous insertion of the flexor tendon of the distal phalanx is a focal calcification, 3 mm in length, which corresponds to the focus of the patient's pain. The adjacent tendon is intact and there is no abnormal collection or abnormal mass. 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 Recommend radiographs of the left finger to exclude joint space etiology of the calcifications such as crystalline arthropathy with or without erosions. RADIA
== END 2018-10-15 11:13 | disposition home or self-care (01) ==
LOC: DI 11:12
PROVIDERS: ATTEND Orthopaedic Surgery
DX: M25.842 Other specified joint disorders, left hand (principal)
CPT/HCPCS: 76882

== ENCOUNTER 2018-12-31 08:38 | Outpatient (CLI) | payer OTHER ==
--- NOTE | 2018-12-31 12:29 | XRAY Report ---
Reason: TOE PAIN,LEFT Procedure Date: 12/31/2018 Accession Number: [id number] / [id number] Procedure: WCP - Toe(s) LT CPT Code: FULL RESULT: EXAM: LEFT TOE RADIOGRAPHY EXAM DATE: 12/31/2018 08:48 AM. CLINICAL HISTORY: TOE PAIN, LEFT. COMPARISON: TOE(S) LT 08/27/2017 1:03 PM TOE(S) LT 06/06/2017 10:19 AM. TECHNIQUE: 3 views. FINDINGS: Bones: Compared to August 2017 there has been placement of an operative fixation screw at the site of previous fracture at the medial base of the third proximal phalanx with interval osteonecrosis/resorption of the fracture fragment and additional erosion of the proximal phalanx and distal third metatarsal. The bones are qualitatively osteopenic; this limits evaluation for underlying fractures or masses. No new fracture is seen. Arthrodesis screws are seen in the first metatarsal. Joints: Complete fusion of the distal fourth ray is again seen. Soft Tissues: Normal. No soft tissue swelling. IMPRESSION: Interval surgical fixation of the third proximal phalanx fracture with development of erosive changes in the area. RADIA
== END 2018-12-31 08:39 | disposition home or self-care (01) ==
LOC: DI.WCP 08:38
PROVIDERS: ATTEND Family Medicine
DX: M79.675 Pain in left toe(s) (principal)
CPT/HCPCS: 73660

== ENCOUNTER 2019-01-28 09:19 | Outpatient (CLI) | payer OTHER ==
--- NOTE | 2019-01-29 09:10 | Mammography Report ---
Reason: SCREENING MAMMO Procedure Date: 01/28/2019 Accession Number: [id number] / [id number] Procedure: MAGALI - Screening Mammo w/Simone CPT Code: FULL RESULT: EXAM: Screening Mammo w/Simone DATE: 01/28/2019 10:05 AM CLINICAL HISTORY: Screening encounter. History of ovarian cancer. TECHNIQUE: (B) - Bilateral CC, laterally exaggerated CC, MLO views were obtained. COMPARISON: 01/01/2018 through 05/15/2013. PARENCHYMAL PATTERN: (D) - The breast(s) demonstrate(s) heterogeneously dense fibroglandular parenchyma. FINDINGS: Note is made of coarse typically benign and typically benign vascular calcifications. Bilateral pattern of nodular breast parenchyma demonstrates long-term stability, typically benign appearance. There are no suspicious masses, calcifications, or areas of distortion. IMPRESSION: Benign findings. BI-RADS category 2. RECOMMENDATION: (ANNUAL) - Recommend routine annual screening mammography. BI-RADS CATEGORY: (2) - Benign Findings. STANDARD QUALIFYING STATEMENTS: 1. This examination was not reviewed with the aid of Computer-Aided Detection (CAD). 2. A negative or benign imaging report should not preclude biopsy if clinically suspicious findings are present. 3. Dense breasts may obscure an underlying neoplasm. 4. This examination was reviewed with the aid of 3D breast imaging (tomosynthesis).
== END 2019-01-28 09:20 | disposition home or self-care (01) ==
LOC: DI 09:19
DX: Z12.31 Encounter for screening mammogram for malignant neoplasm of breast (principal); Z85.43 Personal history of malignant neoplasm of ovary
CPT/HCPCS: 77063; 77067

== ENCOUNTER 2019-01-31 11:13 | Outpatient (CLI) | payer OTHER ==
[2019-01-31 12:03] LABS: HGB - HEMOGLOBIN 12.9 g/dL (12.0-16.0); MEAN CORPUSCULAR HGB CONC 30.7 g/dL (32.0-36.0); MEAN CORPUSCULAR VOLUME 91.3 fL (81.0-99.0); MEAN PLATELET VOLUME 9.7 fL (7.9-10.8); RED BLOOD COUNT 4.6 10^6/uL (4.20-5.40); RED CELL DISTRIBUTION WIDTH 13.2 % (12.0-15.0); WHITE BLOOD COUNT 3.6 x10^3/uL (4.8-10.8)
[2019-01-31 12:24] LABS: CRP - C-REACTIVE PROTEIN < 1.0 mg/dL (0-1.0)
[2019-01-31 12:31] LABS: URIC ACID 3.3 mg/dL (2.6-7.2)
[2019-01-31 13:24] LABS: RHEUMATOID FACTOR NEGATIVE (Negative)
--- NOTE | 2019-01-31 15:39 | XRAY Report ---
Reason: ANKLE JOINT PAIN,RIGHT Procedure Date: 01/31/2019 Accession Number: [id number] / [id number] Procedure: XR - Ankle 2 View RT CPT Code: FULL RESULT: EXAM: RIGHT ANKLE RADIOGRAPHY EXAM DATE: 01/31/2019 11:22 AM. CLINICAL HISTORY: Right sided ankle pain. COMPARISON: FOOT 2 VIEW BILAT 03/06/2017 2:41 PM. TECHNIQUE: 2 views. FINDINGS: Bones: Normal. No fractures or bone lesions. Metallic screws are noted on lateral view at the level of the metatarsals. Joints: Normal. No effusion. No subluxations. The ankle mortise is normally aligned. Soft Tissues: Normal. No soft tissue swelling. IMPRESSION: Grossly unremarkable exam, with metallic screws noted on lateral view at the level of metatarsals. RADIA
[2019-02-03 20:06] LABS: ANA SCREEN POSITIVE (NEGATIVE)
== END 2019-01-31 11:14 | disposition home or self-care (01) ==
LOC: DI 11:13
PROVIDERS: ATTEND Family Medicine
DX: M25.571 Pain in right ankle and joints of right foot (principal)
CPT/HCPCS: 36415; 84550; 85027; 85651; 86038; 86140; 86200; 86430

== ENCOUNTER 2019-02-06 10:21 | Outpatient (CLI) | payer OTHER ==
[2019-02-10 19:16] LABS: ANA SCREEN POSITIVE (NEGATIVE)
== END 2019-02-06 10:22 | disposition home or self-care (01) ==
LOC: LAB.WCP 10:21
PROVIDERS: ATTEND Family Medicine
DX: M25.571 Pain in right ankle and joints of right foot (principal)
CPT/HCPCS: 36415; 86038

== ENCOUNTER 2019-03-18 08:00 | Outpatient (CLI) | payer OTHER ==
[2019-03-18 18:43] LABS: EOSINOPHILS # (AUTO) 0.3 10^3/uL (0.0-0.7); EOSINOPHILS % (AUTO) 6.4 %; HGB - HEMOGLOBIN 12.4 g/dL (12.0-16.0); LYMPHOCYTES # (AUTO) 0.9 10^3/uL (1.5-3.5); LYMPHOCYTES % (AUTO) 21.6 %; MEAN CORPUSCULAR HEMOGLOBIN 29.2 pg (27.0-31.0); MEAN CORPUSCULAR HGB CONC 31.6 g/dL (32.0-36.0); MEAN CORPUSCULAR VOLUME 92.5 fL (81.0-99.0); MEAN PLATELET VOLUME 9.9 fL (7.9-10.8); MONOCYTES # (AUTO) 0.4 10^3/uL (0.0-1.0); MONOCYTES % (AUTO) 9.8 %; NEUTROPHILS # (AUTO) 2.5 10^3/uL (1.5-6.6); PLT - PLATELET COUNT 315 10^3/uL (130-450); RED BLOOD COUNT 4.25 10^6/uL (4.20-5.40); RED CELL DISTRIBUTION WIDTH 12.8 % (12.0-15.0); WHITE BLOOD COUNT 4.1 x10^3/uL (4.8-10.8)
== END 2019-03-18 23:59 | disposition home or self-care (01) ==
LOC: LAB.WCP 08:00
PROVIDERS: ATTEND Internal Medicine Rheumatology
DX: D72.819 Decreased white blood cell count, unspecified (principal); M25.50 Pain in unspecified joint
CPT/HCPCS: 36415; 85025

== ENCOUNTER 2019-07-13 10:08 | Outpatient (CLI) | payer OTHER ==
[2019-07-13 14:37] LABS: BASOPHILS # (AUTO) 0.1 10^3/uL (0.0-0.1); BASOPHILS % (AUTO) 1.5 %; EOSINOPHILS # (AUTO) 0.2 10^3/uL (0.0-0.7); EOSINOPHILS % (AUTO) 6.5 %; HGB - HEMOGLOBIN 12.3 g/dL (12.0-16.0); LYMPHOCYTES # (AUTO) 0.9 10^3/uL (1.5-3.5); LYMPHOCYTES % (AUTO) 25.5 %; MEAN CORPUSCULAR HEMOGLOBIN 29.1 pg (27.0-31.0); MEAN CORPUSCULAR HGB CONC 31.1 g/dL (32.0-36.0); MEAN CORPUSCULAR VOLUME 93.8 fL (81.0-99.0); MEAN PLATELET VOLUME 10.5 fL (7.9-10.8); MONOCYTES # (AUTO) 0.4 10^3/uL (0.0-1.0); NEUTROPHILS # (AUTO) 1.9 10^3/uL (1.5-6.6); NEUTROPHILS % (AUTO) 54.5 %; PLT - PLATELET COUNT 254 10^3/uL (130-450); RED BLOOD COUNT 4.22 10^6/uL (4.20-5.40); RED CELL DISTRIBUTION WIDTH 13.2 % (12.0-15.0); WHITE BLOOD COUNT 3.4 x10^3/uL (4.8-10.8)
[2019-07-13 14:50] LABS: ALBUMIN 4.5 g/dL (3.2-5.5); ALBUMIN/GLOBULIN RATIO 1.5 (1.0-2.2); BILIRUBIN,TOTAL 0.5 mg/dL (0.2-1.0); CALCIUM 9.4 mg/dL (8.5-10.3); CREATININE 0.9 mg/dL (0.4-1.0); MAGNESIUM 2.3 mg/dL (1.7-2.8); TOTAL PROTEIN 7.5 g/dL (6.7-8.2)
== END 2019-07-13 23:59 | disposition home or self-care (01) ==
LOC: LAB.WCP 10:08
PROVIDERS: ATTEND Family Medicine
DX: R00.2 Palpitations (principal)
CPT/HCPCS: 36415; 80053; 83735; 84134; 84443; 85025

== ENCOUNTER 2019-07-27 08:40 | Outpatient (CLI) | payer OTHER | END 2019-07-27 23:59 | LOC: LAB.WCP 08:40 | PROVIDERS: ATTEND Physician Assistant Medical | DX: J02.0 Streptococcal pharyngitis (principal) | CPT/HCPCS: 87275; 87276 ==

== ENCOUNTER 2020-01-08 08:37 | Outpatient (CLI) | payer OTHER ==
--- NOTE | 2020-01-08 15:45 | XRAY Report ---
Reason: LOW BACK PAIN Procedure Date: 01/08/2020 Accession Number: [id number] / [id number] Procedure: WCP - Lumbar Spine 2 View CPT Code: Final Report FULL RESULT: EXAM: LUMBOSACRAL SPINE RADIOGRAPHY EXAM DATE: 01/08/2020 08:52 AM. CLINICAL HISTORY: LOW BACK PAIN. COMPARISONS: LUMBAR SPINE 2 VIEW 01/23/2018 9:20 AM. TECHNIQUE: 2 views. FINDINGS: Alignment: Normal. No spondylolisthesis or scoliosis. Bones: Five [id number] lumbar vertebral bodies are present. Pedicle screws and posterior interlocking fusion rods at L4 and L5. No acute fracture or bone lesions. Disks: Interbody fusion device within the L4-L5 disk space. Prosthetic disk components at L5-S1. Moderate disk space narrowing at L3-L4 and L2-L3. Facets: No degenerative changes. Sacroiliac Joints: Unremarkable. Soft Tissues: Normal. The visualized bowel gas pattern is normal. IMPRESSION: 1. Previous L4-L5 fusion. 2. Previous L5-S1 disk arthroplasty. 3. Disk space narrowing at L3-L4 and L2-L3. 4. No change. RADIA
== END 2020-01-08 23:59 | disposition home or self-care (01) ==
LOC: DI.WCP 08:37
PROVIDERS: ATTEND Family Medicine
DX: M47.816 Spondylosis without myelopathy or radiculopathy, lumbar region (principal); Z98.1 Arthrodesis status
CPT/HCPCS: 72100

== ENCOUNTER 2020-02-15 12:41 | Emergency (ER) | payer OTHER ==
--- NOTE | 2020-02-15 13:52 | ED Physician Documentation ---
PD HPI UPPER EXT INJURY - Stated complaint Stated Complaint: DOG BITE - Chief complaint Chief Complaint: Wound - History obtained from History obtained from: Patient - History of Present Illness Location: Right, Forearm Type of injury: Puncture wound (dog bite wound to forearm when other dogs attacked [place] the [place] Where injury occurred: Other (beach) Timing - onset: Today ( was called and was tracking the wool shearer of the other dogs. Address of wool shearer is known, so dogs can be followed up.) Timing - details: Abrupt onset Worsened by: Palpating. 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 - Present Medications Home Medications: Ambulatory Orders Medication Instructions Recorded Confirmed Estradiol [Vivelle-Dot] 0.75 mg PO DAILY 12/23/14 07/02/18 clonazePAM [Clonazepam] 2 mg PO QPM 12/23/14 07/02/18 traZODone [Desyrel] 100 mg PO DAILY 12/23/14 07/02/18 Duloxetine HCl [Cymbalta] 60 mg PO QPM 02/22/16 07/02/18 Mirabegron [Myrbetriq] 1 tab PO QPM 02/22/16 07/02/18 Solifenacin Succinate [Vesicare] 1 tab QPM 02/22/16 07/02/18 Zolmitriptan [Zomig] 2 tab PO PRN PRN 02/22/16 07/02/18 polyethylene glycoL 3350 1 tab QID 02/22/16 07/02/18 [Polyethylene Glycol 3350] tiZANidine [Zanaflex] 1 tab PO DAILY 02/22/16 07/02/18 Valacyclovir HCl [Valtrex] 1 tab PO PRN PRN 08/27/17 07/02/18 HYDROcod/ACETAM 5/325 [[place] 5/325] 1 tab PO Q6H PRN #15 tablet 06/13/18 07/02/18 Lidocaine Viscous 2% [Xylocaine 5 ml PO Q4H PRN #1 bottle 06/13/18 07/02/18 Viscous 2%] Metoprolol Succinate 25 mg PO DAILY 06/13/18 07/02/18 Ondansetron HCl [Zofran] 4 mg PO Q6H PRN #20 tablet 06/13/18 07/02/18 lisinopriL [Lisinopril] 20 mg PO DAILY 06/13/18 07/02/18 Metoprolol Tartrate 50 mg PO BID #60 tablet 09/02/18 lisinopriL [Lisinopril] 20 mg PO BID #60 tablet 09/02/18 Amox/Clav 875/125 [Augmentin] 1 each PO BID #10 tablet 02/15/20 - Allergies Allergies/Adverse Reactions: Allergies Allergy/AdvReac Type Severity Reaction Status Date / Time adhesive tape Allergy Rash Verified 09/02/18 11:48 - Social History Does the pt smoke?: No Smoking Status: Never smoker Does the pt drink ETOH?: Yes Does the pt have substance abuse?: No - Immunizations Immunizations are current?: Yes - POLST Patient has POLST: Yes PD ED PE NORMAL - Vitals Vital signs reviewed: Yes - General General: Alert and oriented X 3, No acute distress, Well developed/nourished - Derm Derm: Normal color, Warm and dry - Extremities Extremities: Other (right forearm with 2 punctures into soft tissue. Does not seem to have muscular tenderness. ) - Neuro Neuro: Alert and oriented X 3, No motor deficit, No sensory deficit Results - Vitals Vitals: Vital Signs - 24 hr 02/15/20 02/15/20 12:47 15:08 Temperature 36.8 C 36.5 C Heart Rate 103 H 74 Respiratory 24 16 Rate Blood Pressure 187/99 H 150/80 H O2 Saturation 100 100 Oxygen O2 Source Room air PD MEDICAL DECISION MAKING - ED course Complexity details: considered differential (low risk rabies for [facility] [place] (except bats) and the dogs can get followed up by Animal Control, so will cover abx and update tetanus. ), d/w patient Departure - Departure Disposition: 01 Home, Self Care Clinical Impression: Dog bite of forearm Qualifiers: Encounter type: initial encounter Laterality: right Qualified Code(s): S51.851A - Open bite of right forearm, initial encounter Condition: Stable Record reviewed to determine appropriate education?: Yes Instructions: ED Bite Animal General Follow-Up: Nedra Almeida DO [Primary Care Provider] - Prescriptions: Amox/Clav 875/125 [Augmentin] 1 each PO BID #10 tablet Comments: Normal wound care with cleaning the bites soap and water and applying ointment 2-3 times a day. Tylenol or ibuprofen if needed for pains. Augmentin twice daily for 5 days to reduce the chance of infection. Recheck if signs of infection. Otherwise follow-up with the animal control and they usually will contact you over the next several days. Discharge Date/Time: 02/15/20 15:12
[2020-02-15] MEDS ORDERED: TETANUS/DIPHTHERIA/PERTUSSIS 0.5 ML SYRINGE IM ONE (14:31)
[2020-02-15] MEDS ORDERED: ACETAMINOPHEN 325 MG TABLET PO STA (14:31)
[2020-02-15] MEDS ORDERED: AMOX/CLAV 875 MG/125 MG TABLET PO STA (14:31)
[2020-02-15 15:08] VITALS: BP 150/80
== END 2020-02-15 15:12 | disposition home or self-care (01) ==
LOC: ED 12:41
DX: S51.851A Open bite of right forearm, initial encounter (principal); W54.0XXA Bitten by dog, initial encounter; Y93.K1 Activity, walking an animal; Y92.832 Beach as the place of occurrence of the external cause; Z23 Encounter for immunization; I10 Essential (primary) hypertension
CPT/HCPCS: 90471; 90715; 99283; A9270

== ENCOUNTER 2020-03-02 11:56 | Outpatient (CLI) | payer OTHER ==
--- NOTE | 2020-03-02 16:58 | CT Report ---
PROCEDURE: LUMBAR SPINE WO INDICATIONS: LOW BACK PAIN TECHNIQUE: Noncontrast 3 mm thick sections acquired from the T12 level to the sacrum. Sagittal and coronal refo rmats were constructed. For radiation dose reduction, the following was used: automated exposure co ntrol, adjustment of mA and/or kV according to patient size. COMPARISON: None. FINDINGS: Image quality: Excellent. Bones: There is posterior fusion at L4-5 with prosthetic disc at L5-S1. Hardware is intact without v isualized periprosthetic lucency. There are no visualized osseous fractures or dislocations. No suspi cious osseous lesions. Presumed Schmorl's node is noted the inferior endplate of L2 and to a lesser degree inferior endplate of L3. Moderate to severe disc space narrowing is present at L3-4, L4-5, mild L1-L2 and L2-3. Minimal disc bulge is present at L2-3, L3-4, L4-5. Mild spinal stenosis is present at L2-3, L3-4. The re is mild bilateral foraminal narrowing L3-4, mild to moderate bilateral L4-5 and likely moderate le ft and caym-jh-[id number] right L5-S1. Multilevel uncovertebral hypertrophy is present. Soft tissues: No retroperitoneal masses or hematomas. Visualized aorta is normal in caliber. Signi ficant stool is present throughout the colon. IMPRESSION: 1. Posterior fusion at L4-5 as above. 2. Multilevel disc bulges. 3. Multilevel mild spinal stenosis most notable at L2-3 and L3-4 secondary to disc bulge. 4. Multilevel foraminal narrowing most notable at L4-5 and L5-S1 secondary to facet arthropathy. Reviewed by: Vicky Kwon MD on 03/02/2020 4:57 PM PDT Approved by: Vicky Kwon MD on 03/02/2020 4:57 PM PDT Station ID: [id number]
== END 2020-03-02 11:57 | disposition home or self-care (01) ==
LOC: DI 11:56
PROVIDERS: ATTEND Family Medicine
DX: M51.36 Other intervertebral disc degeneration, lumbar region (principal); M47.816 Spondylosis without myelopathy or radiculopathy, lumbar region; M48.061 Spinal stenosis, lumbar region without neurogenic claudication; M47.817 Spondylosis without myelopathy or radiculopathy, lumbosacral region; Z98.1 Arthrodesis status
CPT/HCPCS: 72131

== ENCOUNTER 2020-04-15 10:05 | Outpatient (CLI) | payer OTHER ==
--- NOTE | 2020-04-19 09:42 | Mammography Report ---
BILATERAL DIGITAL SCREENING MAMMOGRAM 3D/2D: 04/15/2020 CLINICAL: Routine screening. Comparison is made to exams dated: 01/01/2018 mammogram, 01/28/2019 mammogram, 12/12/2016 mammogram, 12/13 mammogram, 11/30/2014 mammogram, and 05/15/2013 mammogram - [facility]. The ti ssue of both breasts is extremely dense, which lowers the sensitivity of mammography. No significant masses, calcifications, or other findings are seen in either breast. There has been no significant interval change. IMPRESSION: NEGATIVE There is no mammographic evidence of malignancy. A 1 year screening mammogram is recommended. This exam was interpreted at Station ID: [id number]. NOTE: For mammograms, a report in lay terms will be sent to the patient. Approximately 15% of breast malignancies will not be visualized mammographically. In the management of a palpable breast mass, a negative mammogram must not discourage biopsy of a clinically suspicious lesion. Electronically Signed By: Kenny Slater M.D. ddp/penrad:04/15/2020 11:07:48 ACR BI-RADS Category 1: Negative 3341F PARENCHYMAL PATTERN: (VD) - The breast(s) demonstrate(s) extremely dense parenchyma, limiting the sen sitivity of mammography. BI-RADS CATEGORY: (1) - 1 RECOMMENDATION: (ANNUAL) - Recommend routine annual screening mammography. [id number] 1 year screening LATERALITY: (B)
== END 2020-04-15 10:06 | disposition home or self-care (01) ==
LOC: DI 10:05
PROVIDERS: ATTEND Obstetrics & Gynecology
DX: Z12.31 Encounter for screening mammogram for malignant neoplasm of breast (principal)
CPT/HCPCS: 77063; 77067

== ENCOUNTER 2020-04-27 09:18 | Outpatient (CLI) | payer OTHER ==
[2020-04-27] MEDS ORDERED: IOVERSOL 320 50 ML VIAL ONE (09:33)
[2020-04-27] MEDS ORDERED: IOVERSOL 320 100 ML VIAL IVP ONE (09:33)
[2020-04-27 09:52] LABS: BASOPHILS % (AUTO) 1.4 %; EOSINOPHILS % (AUTO) 2.9 %; HGB - HEMOGLOBIN 12.4 g/dL (12.0-16.0); LYMPHOCYTES # (AUTO) 0.8 10^3/uL (1.5-3.5); LYMPHOCYTES % (AUTO) 23.9 %; MEAN CORPUSCULAR HEMOGLOBIN 28.6 pg (27.0-31.0); MEAN CORPUSCULAR HGB CONC 31.2 g/dL (32.0-36.0); MEAN CORPUSCULAR VOLUME 91.5 fL (81.0-99.0); MEAN PLATELET VOLUME 9.5 fL (7.9-10.8); MONOCYTES # (AUTO) 0.4 10^3/uL (0.0-1.0); MONOCYTES % (AUTO) 10.1 %; NEUTROPHILS # (AUTO) 2.1 10^3/uL (1.5-6.6); NEUTROPHILS % (AUTO) 61.7 %; PLT - PLATELET COUNT 229 10^3/uL (130-450); RED BLOOD COUNT 4.34 10^6/uL (4.20-5.40); RED CELL DISTRIBUTION WIDTH 12.7 % (12.0-15.0); WHITE BLOOD COUNT 3.5 x10^3/uL (4.8-10.8)
[2020-04-27 09:53] LABS: BASOPHILS # (AUTO) 0.1 10^3/uL (0.0-0.1); EOSINOPHILS # (AUTO) 0.1 10^3/uL (0.0-0.7)
[2020-04-27 10:10] LABS: ALBUMIN 4.6 g/dL (3.2-5.5); ALBUMIN/GLOBULIN RATIO 1.4 (1.0-2.2); BILIRUBIN,TOTAL 0.5 mg/dL (0.2-1.0); CALCIUM 9.6 mg/dL (8.5-10.3); CREATININE 0.8 mg/dL (0.4-1.0); TOTAL PROTEIN 7.8 g/dL (6.7-8.2)
--- NOTE | 2020-04-27 11:14 | CT Report ---
PROCEDURE: Abdomen/Pelvis W INDICATIONS: LLQ ABDOMINAL PAIN CONTRAST: IV CONTRAST: Optiray 320 ml: 80 PO CONTRAST: Optiray 320 ml50 TECHNIQUE: After the administration of 80 mL of intravenous contrast, 5 mm thick sections acquired from the diap hragms to the symphysis. 5 mm thick coronal and sagittal reformats were acquired. For radiation dos e reduction, the following was used: automated exposure control, adjustment of mA and/or kV accordin g to patient size. COMPARISON: 04/05/2016 FINDINGS: Image quality: Excellent. ABDOMEN: Lung bases: Lung bases are clear. Heart size is normal. Solid organs: Liver and spleen are normal in size and enhancement. Gallbladder is surgically absent . Mild prominence of the common bile duct likely related to post cholecystectomy physiologic dilatati on. Biliary system is otherwise non dilated. Pancreas enhances normally. No adrenal nodules. Kidne ys demonstrate normal size and enhancement, without hydronephrosis. Peritoneum and bowel: Bowel loops demonstrate normal wall thickness and caliber. A very large amount of fecal material is seen throughout the entire colon and rectum. No free fluid or air. Nodes and vessels: No retroperitoneal or mesenteric adenopathy by size criteria. Aorta and inferior vena cava are normal in size. Miscellaneous: No ventral hernias. PELVIS: Genitourinary: Bladder wall thickness is normal. Miscellaneous: No inguinal hernias or adenopathy. Bones: No suspicious bony lesions. No acute vertebral body compression fractures. Stable postsurgic al changes of posterior spinal fusion of L4-5 and discectomy at L5-S1. Degenerative endplate changes seen throughout the imaged spine. Inferior endplate Schmorl's node has enlarged at L2. IMPRESSION: 1. CT abdomen and pelvis without acute abnormalities. 2. A very large amount of material seen throughout the entire colon and rectum. 3. Status post cholecystectomy. 4. Stable postoperative changes of the lower lumbar spine Findings were discussed with Dr. Almeida at 1110 hrs. Reviewed by: Reggie Turner MD on 04/27/2020 11:12 AM PDT Approved by: Reggie Turner MD on 04/27/2020 11:12 AM PDT Station ID: [id number]
[2020-04-27] MEDS: IOVERSOL 320 50 ML VIAL PO ONE (13:45)
[2020-04-27] MEDS: IOVERSOL 320 100 ML VIAL IVP ONE (13:46)
== END 2020-04-27 09:19 | disposition home or self-care (01) ==
LOC: DI 09:18
PROVIDERS: ATTEND Family Medicine
DX: R10.32 Left lower quadrant pain (principal); Z90.49 Acquired absence of other specified parts of digestive tract
CPT/HCPCS: 36415; 74177; 80053; 83690; 85025; Q9967

== ENCOUNTER 2020-08-26 10:41 | Outpatient (CLI) | payer OTHER ==
--- NOTE | 2020-08-26 16:37 | XRAY Report ---
PROCEDURE: Knee 4 View LT INDICATIONS: KNEE PAIN,LEFT TECHNIQUE: 04 views of the left knee(s) were acquired. COMPARISON: None. FINDINGS: Bones: No acute fractures or dislocations. Mild tricompartmental degenerative changes of the left kn ee. No suspicious bony lesions. Soft tissues: No joint effusion. No suspicious soft tissue calcifications. IMPRESSION: Left knee without acute osseous abnormalities. Mild tricompartmental degenerative change . Reviewed by: Reggie Turner MD on 08/26/2020 3:36 PM [facility] Approved by: Reggie Turner MD on 08/26/2020 3:36 PM [facility] Station ID: [id number]
== END 2020-08-26 10:42 | disposition home or self-care (01) ==
LOC: DI 10:41
PROVIDERS: ATTEND Family Medicine
DX: M17.12 Unilateral primary osteoarthritis, left knee (principal)

== ENCOUNTER 2021-01-17 08:00 | Outpatient (CLI) | payer OTHER ==
[2021-01-17 18:14] LABS: BASOPHILS # (AUTO) 0.1 10^3/uL (0.0-0.1); BASOPHILS % (AUTO) 1.9 %; EOSINOPHILS # (AUTO) 0.2 10^3/uL (0.0-0.7); EOSINOPHILS % (AUTO) 4.3 %; HCT - HEMATOCRIT 37.9 % (37.0-47.0); HGB - HEMOGLOBIN 11.7 g/dL (12.0-16.0); LYMPHOCYTES # (AUTO) 0.9 10^3/uL (1.5-3.5); LYMPHOCYTES % (AUTO) 21.9 %; MEAN CORPUSCULAR HEMOGLOBIN 27.1 pg (27.0-31.0); MEAN CORPUSCULAR HGB CONC 30.9 g/dL (32.0-36.0); MEAN CORPUSCULAR VOLUME 87.9 fL (81.0-99.0); MEAN PLATELET VOLUME 10.4 fL (7.9-10.8); MONOCYTES # (AUTO) 0.5 10^3/uL (0.0-1.0); MONOCYTES % (AUTO) 11.1 %; NEUTROPHILS # (AUTO) 2.5 10^3/uL (1.5-6.6); NEUTROPHILS % (AUTO) 60.6 %; PLT - PLATELET COUNT 227 10^3/uL (130-450); RED BLOOD COUNT 4.31 10^6/uL (4.20-5.40); RED CELL DISTRIBUTION WIDTH 14.6 % (12.0-15.0); WHITE BLOOD COUNT 4.2 x10^3/uL (4.8-10.8)
[2021-01-17 18:29] LABS: ALBUMIN 4.6 g/dL (3.2-5.5); ALBUMIN/GLOBULIN RATIO 1.6 (1.0-2.2); ALKALINE PHOSPHATASE 60 IU/L (42-121); ALT ALANINE AMINOTRANSFERASE 20 IU/L (10-60); AST ASPARTATE AMINOTRANSFERASE 28 IU/L (10-42); BILIRUBIN,TOTAL 0.5 mg/dL (0.2-1.0); BUN - BLOOD UREA NITROGEN 21 mg/dL (6-20); CA 125 7.5 U/mL (0.0-35.0); CALCIUM 9.7 mg/dL (8.5-10.3); CARBON DIOXIDE - CO2 31 mmol/L (21-32); CHLORIDE 96 mmol/L (101-111); CHOL/HDL RATIO 2.9 (<4.4); CHOLESTEROL 206 mg/dL; CREATININE 0.9 mg/dL (0.4-1.0); GFR - MDRD 63 (>89); GLUCOSE 104 mg/dL (70-100); HDL CHOLESTEROL 72 mg/dL; LDL CHOLESTEROL,CALCULATED 112 mg/dL; LDL/HDL RATIO 1.6 (<4.4); POTASSIUM 4.1 mmol/L (3.5-5.0); SODIUM 138 mmol/L (135-145); TOTAL PROTEIN 7.5 g/dL (6.7-8.2); TRIGLYCERIDES 108 mg/dL; VLDL CHOLESTEROL 22 mg/dL
[2021-01-17 18:32] LABS: THYROID STIMULATING HORMONE 3.44 uIU/mL (0.34-5.60)
== END 2021-01-17 23:59 | disposition home or self-care (01) ==
LOC: LAB.WCP 08:00
PROVIDERS: ATTEND Family Medicine
DX: Z00.00 Encounter for general adult medical examination without abnormal findings (principal); Z87.42 Personal history of other diseases of the female genital tract
CPT/HCPCS: 36415; 80053; 80061; 83721; 84443; 85025; 86304

== ENCOUNTER 2021-03-01 09:51 | Outpatient (CLI) | payer OTHER ==
--- NOTE | 2021-03-01 12:07 | DEXA Report ---
PROCEDURE: Dexa Spine and/or Hip INDICATIONS: OSTEPAENIA TECHNIQUE: Dual energy x-ray absorptiometry (DXA) was performed on a [employer] System. Regions measur ed are the AP Spine, femoral neck, and if needed forearm. COMPARISON: 05/19/2018. FINDINGS: Lumbar Spine: Bone Mineral Density 0.943 g/cm/cm,T score -1.9, osteopenia Left Hip: Bone Mineral Density 0.670 g/cm/cm,T score -2.7, osteoporosis Left Femoral Neck: Bone Mineral Density 0.682 g/cm/cm, T score -2.6, osteoporosis (T score greater or equal to -1.0: NORMAL) (T score from -1.1 to -2.4: OSTEOPENIA) (T score less than or equal to -2.5 to: OSTEOPOROSIS) Impression: Osteoporosis. Bone marrow density has decreased 0.9% interval since prior exam obtained 1 . Patients with diagnosis of osteoporosis or osteopenia should have regular bone mineral density assess ment. For those eligible for Medicare, routine testing is allowed once every 2 years. Testing frequ ency can be increased for patients who have rapidly progressing disease or for those who are receivin g medical therapy to restore bone mass. Reviewed by: Marie Lane MD, PhD on 03/01/2021 12:06 PM PDT Approved by: Marie Lane MD, PhD on 03/01/2021 12:06 PM PDT Station ID: [id number]
== END 2021-03-01 09:52 | disposition home or self-care (01) ==
LOC: DI 09:51
PROVIDERS: ATTEND Family Medicine
DX: M81.0 Age-related osteoporosis without current pathological fracture (principal)

== ENCOUNTER 2021-04-18 08:00 | Outpatient (CLI) | payer OTHER ==
[2021-04-18 18:12] LABS: BASOPHILS # (AUTO) 0.1 10^3/uL (0.0-0.1); BASOPHILS % (AUTO) 1.5 %; EOSINOPHILS # (AUTO) 0.2 10^3/uL (0.0-0.7); EOSINOPHILS % (AUTO) 4.9 %; HCT - HEMATOCRIT 37.5 % (37.0-47.0); HGB - HEMOGLOBIN 11.5 g/dL (12.0-16.0); LYMPHOCYTES # (AUTO) 0.8 10^3/uL (1.5-3.5); LYMPHOCYTES % (AUTO) 19.3 %; MEAN CORPUSCULAR HEMOGLOBIN 26.6 pg (27.0-31.0); MEAN CORPUSCULAR HGB CONC 30.7 g/dL (32.0-36.0); MEAN CORPUSCULAR VOLUME 86.8 fL (81.0-99.0); MEAN PLATELET VOLUME 11.2 fL (7.9-10.8); MONOCYTES # (AUTO) 0.3 10^3/uL (0.0-1.0); MONOCYTES % (AUTO) 8.3 %; NEUTROPHILS # (AUTO) 2.7 10^3/uL (1.5-6.6); NEUTROPHILS % (AUTO) 65.8 %; PLT - PLATELET COUNT 250 10^3/uL (130-450); RED BLOOD COUNT 4.32 10^6/uL (4.20-5.40); RED CELL DISTRIBUTION WIDTH 13.8 % (12.0-15.0); WHITE BLOOD COUNT 4.1 x10^3/uL (4.8-10.8)
[2021-04-18 18:34] LABS: ALBUMIN 4.5 g/dL (3.2-5.5); ALBUMIN/GLOBULIN RATIO 1.4 (1.0-2.2); BILIRUBIN,TOTAL 0.5 mg/dL (0.2-1.0); CALCIUM 9.4 mg/dL (8.5-10.3); CREATININE 0.8 mg/dL (0.4-1.0); POTASSIUM 3.8 mmol/L (3.5-5.0); TOTAL PROTEIN 7.7 g/dL (6.7-8.2)
== END 2021-04-18 23:59 | disposition home or self-care (01) ==
LOC: LAB.N 08:00
PROVIDERS: ATTEND Nurse Practitioner
DX: R10.13 Epigastric pain (principal)
CPT/HCPCS: 36415; 80053; 82150; 83690; 85025; 87086

== ENCOUNTER 2021-04-22 11:33 | Outpatient (CLI) | payer OTHER ==
[2021-04-22 14:20] LABS: BILIRUBIN,URINE NEGATIVE (NEGATIVE); GLUCOSE, URINE (UA) NEGATIVE (NEGATIVE); KETONES,URINE (UA) NEGATIVE (NEGATIVE); LEUKOCYTE ESTERASE, URINE NEGATIVE (NEGATIVE); NITRITE,URINE NEGATIVE (NEGATIVE); OCCULT BLOOD,URINE NEGATIVE (NEGATIVE); PROTEIN,URINE NEGATIVE (NEGATIVE); UROBILINOGEN,URINE 0.2 (NORMAL) E.U./dL (NORMAL)
[2021-04-22 14:29] LABS: CLARITY,URINE CLEAR (CLEAR)
[2021-04-22 15:39] LABS: BACTERIA,URINE None Seen /HPF (None Seen); RBC,URINE None Seen /HPF (0-5); SQUAMOUS EPITHELIAL CELL,UR RARE Squamous (<= Few); WBC,URINE 0-3 /HPF (0-5)
== END 2021-04-22 11:34 | disposition home or self-care (01) ==
LOC: LAB.N 11:33
PROVIDERS: ATTEND Family Medicine
DX: R10.13 Epigastric pain (principal)
CPT/HCPCS: 81001; 87086

== ENCOUNTER 2021-04-26 17:15 | Emergency (ER) | payer OTHER ==
[2021-04-26 18:01] LABS: BASOPHILS # (AUTO) 0.1 10^3/uL (0.0-0.1); BASOPHILS % (AUTO) 1.6 %; EOSINOPHILS # (AUTO) 0.3 10^3/uL (0.0-0.7); EOSINOPHILS % (AUTO) 7.4 %; HCT - HEMATOCRIT 34.1 % (37.0-47.0); HGB - HEMOGLOBIN 10.6 g/dL (12.0-16.0); LYMPHOCYTES # (AUTO) 1.1 10^3/uL (1.5-3.5); LYMPHOCYTES % (AUTO) 23.9 %; MEAN CORPUSCULAR HGB CONC 31.1 g/dL (32.0-36.0); MEAN CORPUSCULAR VOLUME 86.8 fL (81.0-99.0); MEAN PLATELET VOLUME 9.8 fL (7.9-10.8); MONOCYTES # (AUTO) 0.5 10^3/uL (0.0-1.0); MONOCYTES % (AUTO) 11.8 %; NEUTROPHILS # (AUTO) 2.5 10^3/uL (1.5-6.6); NEUTROPHILS % (AUTO) 55.1 %; PLT - PLATELET COUNT 238 10^3/uL (130-450); RED BLOOD COUNT 3.93 10^6/uL (4.20-5.40); RED CELL DISTRIBUTION WIDTH 13.5 % (12.0-15.0); WHITE BLOOD COUNT 4.5 x10^3/uL (4.8-10.8)
[2021-04-26 18:10] LABS: ALBUMIN 4.3 g/dL (3.2-5.5); ALBUMIN/GLOBULIN RATIO 1.4 (1.0-2.2); BILIRUBIN,TOTAL 0.6 mg/dL (0.2-1.0); CALCIUM 9.2 mg/dL (8.5-10.3); CREATININE 0.8 mg/dL (0.4-1.0); POTASSIUM 3.4 mmol/L (3.5-5.0); TOTAL PROTEIN 7.4 g/dL (6.7-8.2)
[2021-04-26] MEDS ORDERED: MAG HYDROX/AL HYDROX/SIMETH 30 ML UDC PO STA (19:14)
[2021-04-26] MEDS ORDERED: SUCRALFATE 1 GM/10 ML UDC PO STA (19:14)
[2021-04-26] MEDS ORDERED: LIDOCAINE VISCOUS 2% 15 ML UDC MM STA (19:14)
[2021-04-26] MEDS ORDERED: IOPAMIDOL-300 100 ML VIAL ONE (19:41)
--- NOTE | 2021-04-26 20:35 | CT Report ---
PROCEDURE: Abdomen/Pelvis W INDICATIONS: epigastric abd pain x 3 months CONTRAST: IV CONTRAST: Isovue 300 ml: 100 PO CONTRAST: *NO PO CONTRAST TECHNIQUE: After the administration of IV contrast, 5 mm thick sections acquired from the diaphragms to the symp hysis. 5 mm thick coronal and sagittal reformats were acquired. For radiation dose reduction, the f ollowing was used: automated exposure control, adjustment of mA and/or kV according to patient size. COMPARISON: 04/27/2020. FINDINGS: Image quality: Excellent. ABDOMEN: Lung bases: Scarring/atelectasis in posterior aspect of bilateral lung bases are seen. Heart size is normal. Solid organs: Liver and spleen are normal in size and enhancement. Gallbladder is surgically absent Biliary system is non dilated. Pancreas enhances normally. No adrenal nodules. Kidneys demonstra te normal size and enhancement, without hydronephrosis. Peritoneum and bowel: Marked fecal stasis and distention of colon loops are seen throughout the abdom en extending to distal sigmoid colon. Air is noted in most distal portion of sigmoid colon and rectum . No evidence of small bowel loop distention or wall thickening. No gross colonic or stomach wall thi ckening. No mesenteric fat stranding. No free fluid of free air. Nodes and vessels: No retroperitoneal or mesenteric adenopathy by size criteria. Aorta and inferior vena cava are normal in size. Miscellaneous: No ventral hernias. PELVIS: Genitourinary: Bladder wall thickness is normal. Miscellaneous: No inguinal hernias or adenopathy. Bones: Postsurgical changes are again seen in lower lumbar spine. No suspicious bony lesions. No ve rtebral body compression fractures. IMPRESSION: 1. Severe constipation and fecal impaction in the colon not significantly changed from previous study . 2. No bowel obstruction or abnormal bowel wall thickening. No peritoneal free fluid of free air. 3. Findings are not significantly changed from previous study. Reviewed by: Robert Liz MD on 04/26/2021 8:34 PM PDT Approved by: Robert Liz MD on 04/26/2021 8:34 PM PDT Station ID: [id number]
--- NOTE | 2021-04-26 20:54 | ED Physician Documentation ---
PD HPI ABD PAIN - Stated complaint Stated Complaint: ABD PX - Chief complaint Chief Complaint: Abd Pain - History obtained from History obtained from: Patient - History of Present Illness Timing - duration: Months (3) Timing - details: Gradual onset Pain level max: 4 Pain level now: 3 Quality: Aching, Pain Location: Epigastric Improved by: No: Eating, Laying still, Vomiting, BM, Position, Meds Worsened by: Eating Associated symptoms: No: Fever, Vomiting, Melena, Hematochezia, Dysuria, Hematuria - Additional information Additional information: Patient is a 65-year-old female who presents to the emergency department with 3 months of epigastric abdominal pain. Nothing seems to really make it better or worse. She states sometimes it is worse after she eats. No changes in bowel habits. No blood in the stool. No vomiting. Review of Systems Constitutional: denies: Fever, Chills Cardiac: denies: Chest pain / pressure, Palpitations Respiratory: denies: Cough GI: denies: Vomiting, Diarrhea, Hematemesis, Bloody / black stool : denies: Dysuria Skin: denies: Rash Musculoskeletal: denies: Neck pain, Back pain Neurologic: denies: Headache PD PAST MEDICAL HISTORY - Past Medical History Cardiovascular: Hypertension Respiratory: None Neuro: Headaches Endocrine/Autoimmune: None GI: GERD, Ulcers, Colon polyps : None HEENT: None Psych: Anxiety Musculoskeletal: Chronic back pain, Other Derm: None - Past Surgical History Past Surgical History: Yes Ortho: Spine surgery, 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, 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 - Present Medications Home Medications: Ambulatory Orders Medication Instructions Recorded Confirmed Estradiol [Vivelle-Dot] 0.75 mg PO DAILY 12/23/14 07/02/18 clonazePAM [Clonazepam] 2 mg PO QPM 12/23/14 07/02/18 traZODone [Desyrel] 100 mg PO DAILY 12/23/14 07/02/18 Duloxetine HCl [Cymbalta] 60 mg PO QPM 02/22/16 07/02/18 Mirabegron [Myrbetriq] 1 tab PO QPM 02/22/16 07/02/18 Solifenacin Succinate [Vesicare] 1 tab QPM 02/22/16 07/02/18 Zolmitriptan [Zomig] 2 tab PO PRN PRN 02/22/16 07/02/18 polyethylene glycoL 3350 1 tab QID 02/22/16 07/02/18 [Polyethylene Glycol 3350] tiZANidine [Zanaflex] 1 tab PO DAILY 02/22/16 07/02/18 Valacyclovir HCl [Valtrex] 1 tab PO PRN PRN 08/27/17 07/02/18 HYDROcod/ACETAM 5/325 [[place] 5/325] 1 tab PO Q6H PRN #15 tablet 06/13/18 07/02/18 Lidocaine Viscous 2% [Xylocaine 5 ml PO Q4H PRN #1 bottle 06/13/18 07/02/18 Viscous 2%] Metoprolol Succinate 25 mg PO DAILY 06/13/18 07/02/18 Ondansetron HCl [Zofran] 4 mg PO Q6H PRN #20 tablet 06/13/18 07/02/18 lisinopriL [Lisinopril] 20 mg PO DAILY 06/13/18 07/02/18 Metoprolol Tartrate 50 mg PO BID #60 tablet 09/02/18 lisinopriL [Lisinopril] 20 mg PO BID #60 tablet 09/02/18 Amox/Clav 875/125 [Augmentin] 1 each PO BID #10 tablet 02/15/20 Famotidine [Pepcid] 20 mg PO BID #60 tablet 04/26/21 Sucralfate [Carafate] 1 gm PO ACHS #60 tablet 04/26/21 - Allergies Allergies/Adverse Reactions: Allergies Allergy/AdvReac Type Severity Reaction Status Date / Time adhesive tape Allergy Rash Verified 04/26/21 17:35 - Social History Does the pt smoke?: No Smoking Status: Never smoker Does the pt drink ETOH?: Yes Does the pt have substance abuse?: No - Immunizations Immunizations are current?: Yes - POLST Patient has POLST: Yes PD ED PE NORMAL - Vitals Vital signs reviewed: Yes - General General: Alert and oriented X 3, No acute distress - HEENT HEENT: Moist mucous membranes - Neck Neck: Supple, no meningeal sign - Cardiac Cardiac: RRR - Respiratory Respiratory: No respiratory distress, Clear bilaterally - Abdomen Abdomen: Soft, Non tender, Non distended, No organomegaly - Back Back: No spinal TTP - Derm Derm: Warm and dry - Extremities Extremities: No edema, No calf tenderness / cord - Neuro Neuro: Alert and oriented X 3 Results - Vitals Vitals: Oxygen O2 Source Room air - Labs Labs: Laboratory Tests 04/26/21 04/26/21 17:52 17:52 WBC 4.5 L RBC 3.93 L Hgb 10.6 L Hct 34.1 L MCV 86.8 MCH 27.0 MCHC 31.1 L RDW 13.5 Plt Count 238 MPV 9.8 Neut # (Auto) 2.5 Lymph # (Auto) 1.1 L [place] # (Auto) 0.5 Eos # (Auto) 0.3 Baso # (Auto) 0.1 Absolute Nucleated RBC 0.00 Nucleated RBC % 0.0 Sodium 140 Potassium 3.4 L Chloride 99 L Carbon Dioxide 32 Anion Gap 9.0 BUN 24 H Creatinine 0.8 Estimated GFR (MDRD) 72 L Glucose 111 H Calcium 9.2 Total Bilirubin 0.6 AST 33 ALT 25 Alkaline Phosphatase 59 Total Protein 7.4 Albumin 4.3 Globulin 3.1 Albumin/Globulin Ratio 1.4 Lipase 42 PD MEDICAL DECISION MAKING - ED course Complexity details: reviewed results, re-evaluated patient, considered differential, d/w patient ED course: Constipation and fecal impaction in the colon are not changed from prior study. Patient is not symptomatic at that area. She states that that is a known issue and she is following up with her doctor for this. She states that she has had colonoscopies as well. Unclear etiology of her symptoms today. Will treat for possible gastritis. Patient is well-appearing, nontoxic. Afebrile. Tolerating p.o. without difficulty here. Abdomen is soft, nontender nondistended on serial exam. Patient counseled regarding signs and symptoms for which I believe and urgent re-evaluation would be necessary. Patient with good understanding of and agreement to plan and is comfortable going home at this time This document was made in part using voice recognition software. While efforts are made to proofread this document, sound alike and grammatical errors may occur. Departure - Departure Disposition: 01 Home, Self Care Clinical Impression: Epigastric abdominal pain Condition: Good Instructions: ED Abdominal Pain Unkn Cause, ED PUD Vs Gastritis Follow-Up: Nedra Almeida DO [Primary Care Provider] - Within 1 week Prescriptions: Sucralfate [Carafate] 1 gm PO ACHS #60 tablet Famotidine [Pepcid] 20 mg PO BID #60 tablet Comments: Please follow-up with your doctor for further care. You likely have gastritis versus an ulcer. Please follow-up with your doctor for further care. It is recommended to have an endoscopy. Discharge Date/Time: 04/26/21 21:07
[2021-04-26] MEDS ORDERED: IOPAMIDOL-300 100 ML VIAL IVP ONE (21:01)
[2021-04-26 21:07] VITALS: BP 175/91
== END 2021-04-26 21:07 | disposition home or self-care (01) ==
LOC: ED 17:15
DX: R10.13 Epigastric pain (principal); K56.41 Fecal impaction
CPT/HCPCS: 36415; 74177; 80053; 83690; 85025; 99284; A9270; Q9967

== ENCOUNTER 2021-07-05 09:05 | Outpatient (CLI) | payer OTHER ==
--- NOTE | 2021-07-07 08:56 | Mammography Report ---
BILATERAL DIGITAL SCREENING MAMMOGRAM 3D/2D: 07/05/2021 CLINICAL: Routine screening. Comparison is made to exams dated: 04/15/2020 mammogram, 01/28/2019 mammogram, 01/01/2018 mammogram, 12/12 mammogram, 12/14/2015 mammogram, and 11/30/2014 mammogram - [facility]. The tis chemo of both breasts is extremely dense, which lowers the sensitivity of mammography. No significant masses, calcifications, or other findings are seen in either breast. There has been no significant interval change. IMPRESSION: NEGATIVE There is no mammographic evidence of malignancy. A 1 year screening mammogram is recommended. This exam was interpreted at Station ID: [id number]. NOTE: For mammograms, a report in lay terms will be sent to the patient. Approximately 15% of breast malignancies will not be visualized mammographically. In the management of a palpable breast mass, a negative mammogram must not discourage biopsy of a clinically suspicious lesion. Electronically Signed By: Jasen Nielsen M.D., jr/abdon:07/05/2021 12:24:29 ACR BI-RADS Category 1: Negative 3341F PARENCHYMAL PATTERN: (VD) - The breast(s) demonstrate(s) extremely dense parenchyma, limiting the sen sitivity of mammography. BI-RADS CATEGORY: (1) - 1 RECOMMENDATION: (ANNUAL) - Recommend routine annual screening mammography. 20220706 1 year screening LATERALITY: (B)
== END 2021-07-05 09:06 | disposition home or self-care (01) ==
LOC: DI 09:05
DX: Z12.31 Encounter for screening mammogram for malignant neoplasm of breast (principal)

== ENCOUNTER 2021-07-14 15:27 | Outpatient (CLI) | payer OTHER ==
[2021-07-14 18:13] LABS: BASOPHILS # (AUTO) 0.1 10^3/uL (0.0-0.1); BASOPHILS % (AUTO) 1.4 %; EOSINOPHILS # (AUTO) 0.1 10^3/uL (0.0-0.7); EOSINOPHILS % (AUTO) 2.5 %; HCT - HEMATOCRIT 35.3 % (37.0-47.0); HGB - HEMOGLOBIN 11.2 g/dL (12.0-16.0); LYMPHOCYTES # (AUTO) 1.4 10^3/uL (1.5-3.5); MEAN CORPUSCULAR HEMOGLOBIN 26.8 pg (27.0-31.0); MEAN CORPUSCULAR HGB CONC 31.7 g/dL (32.0-36.0); MEAN CORPUSCULAR VOLUME 84.4 fL (81.0-99.0); MEAN PLATELET VOLUME 11.1 fL (7.9-10.8); MONOCYTES # (AUTO) 0.5 10^3/uL (0.0-1.0); MONOCYTES % (AUTO) 9.8 %; NEUTROPHILS # (AUTO) 2.8 10^3/uL (1.5-6.6); NEUTROPHILS % (AUTO) 58.1 %; PLT - PLATELET COUNT 255 10^3/uL (130-450); RED BLOOD COUNT 4.18 10^6/uL (4.20-5.40); RED CELL DISTRIBUTION WIDTH 13.8 % (12.0-15.0); WHITE BLOOD COUNT 4.9 x10^3/uL (4.8-10.8)
[2021-07-14 18:34] LABS: ALBUMIN 4.8 g/dL (3.2-5.5); ALBUMIN/GLOBULIN RATIO 1.5 (1.0-2.2); ALKALINE PHOSPHATASE 67 IU/L (42-121); ALT ALANINE AMINOTRANSFERASE 24 IU/L (10-60); AST ASPARTATE AMINOTRANSFERASE 31 IU/L (10-42); BILIRUBIN,TOTAL 0.5 mg/dL (0.2-1.0); BUN - BLOOD UREA NITROGEN 19 mg/dL (6-20); CALCIUM 9.9 mg/dL (8.5-10.3); CARBON DIOXIDE - CO2 31 mmol/L (21-32); CHLORIDE 98 mmol/L (101-111); CREATININE 0.8 mg/dL (0.4-1.0); GFR - MDRD 72 (>89); GLUCOSE 103 mg/dL (70-100); POTASSIUM 3.5 mmol/L (3.5-5.0); SODIUM 138 mmol/L (135-145); TOTAL PROTEIN 8.1 g/dL (6.7-8.2)
[2021-07-14 18:37] LABS: CRP - C-REACTIVE PROTEIN < 1.0 mg/dL (0-1.0)
[2021-07-14 18:48] LABS: THYROID STIMULATING HORMONE 2.99 uIU/mL (0.34-5.60)
[2021-07-14 19:57] LABS: BILIRUBIN,URINE NEGATIVE (NEGATIVE); CLARITY,URINE CLEAR (CLEAR); GLUCOSE, URINE (UA) NEGATIVE (NEGATIVE); KETONES,URINE (UA) NEGATIVE (NEGATIVE); LEUKOCYTE ESTERASE, URINE NEGATIVE (NEGATIVE); NITRITE,URINE NEGATIVE (NEGATIVE); OCCULT BLOOD,URINE NEGATIVE (NEGATIVE); PH,URINE 7.5 PH (5.0-7.5); PROTEIN,URINE NEGATIVE (NEGATIVE); UROBILINOGEN,URINE 0.2 (NORMAL) E.U./dL (NORMAL)
[2021-07-14 20:28] LABS: BACTERIA,URINE Rare /HPF (None Seen); RBC,URINE None Seen /HPF (0-5); SQUAMOUS EPITHELIAL CELL,UR NONE SEEN (<= Few); WBC,URINE 0-3 /HPF (0-5)
== END 2021-07-14 23:59 | disposition home or self-care (01) ==
LOC: LAB.WCP 15:27
PROVIDERS: ATTEND Nurse Practitioner
DX: R42 Dizziness and giddiness (principal); R53.83 Other fatigue
CPT/HCPCS: 36415; 80053; 81001; 82607; 84443; 85025; 85651; 86140; 87086

== ENCOUNTER 2022-05-14 18:17 | Emergency (ER) | payer MEDICARE, OTHER ==
--- NOTE | 2022-05-14 19:29 | ED Physician Documentation ---
PD HPI SKIN - Stated complaint Stated Complaint: OPEN WOUND/POST OP - Chief complaint Chief Complaint: Wound - History obtained from History obtained from: Patient - Additional information Additional information: 67-year-old woman presents postop day 12 status post carpal tunnel surgery on right hand. Patient had her stitches taken out and was told to resume normal activity today and she went home and resumed her normal gardening and lifted several large objects. She noticed blood emerging from the wound site and presents here for wound check. denies swelling, pain, erythema, numbness or difficulty with any hand movement. Review of Systems Skin: reports: Other (wound) PD PAST MEDICAL HISTORY - Past Medical History Past Medical History: Yes Cardiovascular: Hypertension Respiratory: None Neuro: Headaches Endocrine/Autoimmune: None GI: GERD, Ulcers, Colon polyps : None HEENT: None Psych: Anxiety Musculoskeletal: Chronic back pain, Other Derm: None - Past Surgical History Past Surgical History: Yes Ortho: Carpal Tunnel surgery, Spine surgery, Other /MOVEMENT [employer]SEM[employer]ER: Hysterectomy, Oophrectomy - Present Medications Home Medications: Ambulatory Orders Medication Instructions Recorded Confirmed Estradiol [Vivelle-Dot] 0.75 mg PO DAILY 12/23/14 07/02/18 clonazePAM [Clonazepam] 2 mg PO QPM 12/23/14 07/02/18 traZODone [Desyrel] 100 mg PO DAILY 12/23/14 07/02/18 Duloxetine HCl [Cymbalta] 60 mg PO QPM 02/22/16 07/02/18 Mirabegron [Myrbetriq] 1 tab PO QPM 02/22/16 07/02/18 Solifenacin Succinate [Vesicare] 1 tab QPM 02/22/16 07/02/18 Zolmitriptan [Zomig] 2 tab PO PRN PRN 02/22/16 07/02/18 polyethylene glycoL 3350 1 tab QID 02/22/16 07/02/18 [Polyethylene Glycol 3350] tiZANidine [Zanaflex] 1 tab PO DAILY 02/22/16 07/02/18 Valacyclovir HCl [Valtrex] 1 tab PO PRN PRN 08/27/17 07/02/18 HYDROcod/ACETAM 5/325 [[place] 5/325] 1 tab PO Q6H PRN #15 tablet 06/13/18 07/02/18 Lidocaine Viscous 2% [Xylocaine 5 ml PO Q4H PRN #1 bottle 06/13/18 07/02/18 Viscous 2%] Metoprolol Succinate 25 mg PO DAILY 06/13/18 07/02/18 lisinopriL [Lisinopril] 20 mg PO DAILY 06/13/18 07/02/18 ondansetron HCL [Zofran] 4 mg PO Q6H PRN #20 tablet 06/13/18 07/02/18 Metoprolol Tartrate 50 mg PO BID #60 tablet 09/02/18 lisinopriL [Lisinopril] 20 mg PO BID #60 tablet 09/02/18 Amox/Clav 875/125 [Augmentin] 1 each PO BID #10 tablet 02/15/20 Famotidine [Pepcid] 20 mg PO BID #60 tablet 04/26/21 Sucralfate [Carafate] 1 gm PO ACHS #60 tablet 04/26/21 - Allergies Allergies/Adverse Reactions: Allergies Allergy/AdvReac Type Severity Reaction Status Date / Time adhesive tape Allergy Rash Verified 05/14/22 18:34 - Social History Does the pt smoke?: No Smoking Status: Never smoker Does the pt drink ETOH?: Yes Does the pt have substance abuse?: No - Immunizations Immunizations are current?: Yes - POLST Patient has POLST: Yes PD ED PE NORMAL - Vitals Vital signs reviewed: Yes - General General: Alert and oriented X 3, No acute distress, Well developed/nourished - HEENT HEENT: Atraumatic, PERRL, EOMI - Extremities Extremities: Other (2+ radial pulse of right hand. normal sensation, movement, capillary refill. good thumb opposition. wound site at volar wrist with granulation tissue in place. no wound dehiscence noted. clot noted to mid-site. clean with no purulence ) - Neuro Neuro: Alert and oriented X 3 - Psych Psych: Normal mood, Normal affect Results - Vitals Vitals: Vital Signs - 24 hr 05/14/22 18:26 Temperature 37 C Heart Rate 109 H Respiratory 14 Rate Blood Pressure 136/76 H O2 Saturation 100 Oxygen O2 Source Room air PD MEDICAL DECISION MAKING - ED course ED course: 67-year-old woman presented for postoperative wound check. Appears to have full functionality of her hands on exam and there is no wound dehiscence or signs of infection. Provided Steri-Strips, benzoin, and Dermabond to secure the edges of the Steri-Strips. Advised not to apply benzoin or Dermabond near the wound itself. Plan is to rest the hand and follow-up with her surgeon in the morning. Return precautions given. Departure - Departure Disposition: 01 Home, Self Care Clinical Impression: Visit for wound check Condition: Good Instructions: Wound Care Comments: You are seen in the emergency department for evaluation of a postoperative wound. Please follow-up with your surgeon tomorrow. Monitor for any signs of infection and return to the emergency department if you have any new or worsening symptoms or other concerns.
[2022-05-14 19:31] VITALS: BP 132/72
== END 2022-05-14 19:30 | disposition home or self-care (01) ==
LOC: ED 18:17
DX: Z48.00 Encounter for change or removal of nonsurgical wound dressing (principal)
CPT/HCPCS: 99281

== ENCOUNTER 2024-02-07 08:00 | Outpatient (CLI) | payer MEDICARE, OTHER ==
[2024-02-07 13:24] LABS: INFLUENZA A- RESP PCR PANEL NOT DETECTED; INFLUENZA B - RESP PCR PANEL NOT DETECTED; RSV- RESP PCR PANEL NOT DETECTED; SARS-CoV-2 -RESP PCR PANEL NOT DETECTED
== END 2024-02-07 23:59 | disposition home or self-care (01) ==
LOC: LAB 08:00
PROVIDERS: ATTEND Physician Assistant
DX: J06.9 Acute upper respiratory infection, unspecified (principal)
CPT/HCPCS: 87637